=== PATIENT | female | born 1975 | race Caucasian/White ===

== ENCOUNTER 2017-08-24 10:28 | Emergency (ER) | payer SELFPAY ==
[~2017-08-24] VITALS: Ht 152.4 cm; Wt 109.8 kg
[~2017-08-24 10:28] MED LIST: OMEP40CA PO
[2017-08-24 10:35] VITALS: O2SAT 98
[2017-08-24 10:36] VITALS: TEMP 36.4; Ht 152.4 cm; Wt 109.8 kg
--- NOTE | 2017-08-24 11:18 | DIAGNOSTIC IMAGING REPORT ---
CHEST ONE VIEW PORTABLE CLINICAL HISTORY: Atypical chest pain COMPARISON STUDY: 08/04/2015 FINDINGS: The cardiac and mediastinal contours are normal. There is no evidence of focal pulmonary consolidation. There is no evidence of failure. No pleural effusions are visualized.[ IMPRESSION: No active disease in the chest. Electronically signed by: João Beyer M.D. 08/24/2017 11:16 AM Dictated Date/Time: 08/24/2017 11:16 AM
[2017-08-24 11:27] LABS: HEMATOCRIT 38.8 % (37-47); MEAN CELL VOLUME 87.2 fL (80-100); MEAN CORPUSCULAR HEMOGLOBIN 29.9 pg (25-34); MEAN CORPUSCULAR HGB CONC 34.3 g/dl (32-36); MEAN PLATELET VOLUME 11.6 fL (7.4-10.4); PLATELET COUNT 271 K/uL (130-400); RED BLOOD COUNT 4.45 M/uL (4.2-5.4)
[2017-08-24] MEDS ORDERED: KETOROLAC TROMETHAMINE 60 MG/2 ML VIAL IM STA (11:30)
[2017-08-24] MEDS ORDERED: ONDANSETRON INJ 2 MG/ML 2 ML VIAL IV STA (11:30)
[2017-08-24 11:37] LABS: INR 0.9 (0.9-1.1)
[2017-08-24 11:46] LABS: BUN/CREATININE RATIO 19.8 (10-20); CALCIUM 8.8 mg/dl (8.5-10.1); CREATININE 0.59 mg/dl (0.60-1.20); POTASSIUM 4.4 mmol/L (3.5-5.1)
[2017-08-24 11:51] LABS: CKMB/CK RATIO 2.1 (0-3.0)
[2017-08-24 13:28] VITALS: O2SAT 98
--- NOTE | 2017-08-24 13:48 | EMERGENCY ROOM VISIT NOTE ---
History First contact with patient: 11:00 Chief Complaint: CHEST PAIN Stated Complaint: CHEST PAIN Nursing Triage Summary: Pt arrives via ALS litter for eval of left sided chest pain into left jaw/shoulder/arm. Pt denies sob, dizziness or lightheadedness. Pt reports she was nauseated. Pain began at 0915 while at work at [employer]. Pt denies injury to chest. Denies leg pain. Denies cardiac hx or hx of blood clots. Pt given ntg x 3 without relief, also given 324mg ASA AUDIOVISUAL TECH. History of Present Illness Patient is a 42-year-old white female who presents to the emergency department by ALS ambulance from work for evaluation of chest pain. Patient reports that she has been feeling well and was in her usual state of health this morning. 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 She states around 0915, she had the sudden onset of left-sided chest pain, with numbness that radiated into her left arm and her face. She rated her pain a 10/10. She was given a baby aspirin at work, and they checked her blood pressure which was reportedly in the 200s over 100s. The ambulance was summoned. She received aspirin en route and nitroglycerin 3, without relief of her pain. She reports some associated nausea, denies headache, lightheadedness or dizziness or vomiting. She denies any shortness of breath. She does note that the pain radiates through to her left back slightly. It is worse when she touches the area. She denies any abdominal pain. She has not been ill recently with any cold or respiratory symptoms and no cough. She reports an episode of chest pain similar to this in the past. She has never been evaluated by a women's health care nurse practitioner. She reports she is otherwise healthy without chronic medical problems. She specifically denies hypertension, high cholesterol or diabetes. She denies any calf or leg pain or swelling. She does not smoke him is not on any oral contraceptives, there is no prolonged travel or immobilization. No personal or family history of DVT or PE. Review of Systems Review of systems as per HPI. All other systems reviewed were negative. 10 systems reviewed. Past Medical/Surgical History Medical Problems: (1) Abdominal pain (2) Back strain (3) Back strain (4) Bacterial vaginosis (5) Chest pain (6) Fall (7) Kidney stones (8) Ovarian cyst (9) Sciatica of left side (10) Spasm of back muscles (11) Stomach problems (12) Ulcer (13) Urinary tract infection (14) UTI (urinary tract infection) Surgical Problems: (1) Hx of appendectomy (2) Hx of cholecystectomy (3) Hx of tonsillectomy (4) Hx of tubal ligation Electronic medical records are reviewed and summarized as above/below. See Problem List. Family History Cancer Diabetes mellitus Heart disease Hypertension Social History Smoking Status: Never Smoker Alcohol Use: none Drug Use: none Marital Status: Housing Status: lives with family Occupation Status: employed Current/Historical Medications No Active Prescriptions or Reported Meds Physical Exam Vital Signs Date Time Temp Pulse Resp B/P (MAP) Pulse Ox O2 Delivery O2 Flow Rate FiO2 08/24/17 14:20 77 18 111/65 08/24/17 13:31 60 08/24/17 13:28 66 18 98 08/24/17 12:58 69 17 96 08/24/17 12:42 62 18 98/62 98 Room Air 08/24/17 12:41 98/62 08/24/17 12:28 59 18 99 08/24/17 11:58 57 16 96 08/24/17 11:37 58 18 115/71 98 Room Air 08/24/17 11:36 115/71 08/24/17 10:58 65 13 96 08/24/17 10:36 36.4 74 18 136/71 99 Room Air 08/24/17 10:35 98 Room Air 08/24/17 10:34 63 08/24/17 10:33 136/71 Physical Exam CONSTITUTIONAL: Patient is an obese 42-year-old white female who is awake and alert and in no acute distress. EYES: Pupils equal, round, reactive to light and accommodation. EOMs intact without nystagmus. Sclera are anicteric. ENT: Tympanic membranes intact, with normal landmarks. External canals are clear. Oral and nasopharynx are clear. Mucous membranes are moist, no lesions , tongue and gums appear normal. NECK: No bruits auscultated. Supple without lymphadenopathy. No thyromegaly. No meningeal signs. Full active range of motion without discomfort. CARDIOVASCULAR: Regular rate and rhythm, with normal S1 and S2, no murmur or gallop or rub is heard. No carotid bruits auscultated. No JVD. Peripheral pulses easy to palpable. The left costochondral border is exquisitely tender to palpation. RESPIRATORY: Breath sounds equal and clear to auscultation without wheezes, rales, or rhonchi heard. Full and equal chest expansion without accessory muscle use or retractions. GI: Bowel sounds are present. Abdomen is soft, nontender, nondistended. No organomegaly. No pulsatile masses. No guarding or rebound. MUSCULOSKELETAL: Full range of motion of extremities x 4 with good strength. No cyanosis, edema, joint tenderness or swelling. No deformity. INTEGUMENTARY: No lesions or rash, normal skin turgor. NEUROLOGICAL: Alert, oriented, and cooperative. Cranial nerves, sensation and strength grossly intact. Pupils round, equal, and react to light, EOMs are full. LYMPH: No lymphadenopathy. Medical Decision & Procedures ER Provider Diagnostic Interpretation: CHEST ONE VIEW PORTABLE CLINICAL HISTORY: Atypical chest pain COMPARISON STUDY: 08/04/2015 FINDINGS: The cardiac and mediastinal contours are normal. There is no evidence of focal pulmonary consolidation. There is no evidence of failure. No pleural effusions are visualized. IMPRESSION: No active disease in the chest. Laboratory Results 08/24/17 11:05 08/24/17 11:05 Test 08/24/17 11:05 08/24/17 11:35 08/24/17 12:42 Red Blood Count 4.45 M/uL (4.2-5.4) Mean Corpuscular Volume 87.2 fL (80-100) Mean Corpuscular Hemoglobin 29.9 pg (25-34) Mean Corpuscular Hemoglobin Concent 34.3 g/dl (32-36) RDW Standard Deviation 42.6 fL (36.4-46.3) RDW Coefficient of Variation 13.3 % (11.5-14.5) Mean Platelet Volume 11.6 fL (7.4-10.4) Prothrombin Time 10.0 SECONDS (9.0-12.0) Prothromb Time International Ratio 0.9 (0.9-1.1) Activated Partial Thromboplast Time 26.2 SECONDS (21.0-31.0) Partial Thromboplastin Ratio 1.0 Anion Gap 7.0 mmol/L (3-11) Est Creatinine Clear Calc Drug Dose 141.1 ml/min Estimated GFR () 131.9 Estimated GFR (Non- 113.8 BUN/Creatinine Ratio 19.8 (10-20) Calcium Level 8.8 mg/dl (8.5-10.1) Total Bilirubin 0.5 mg/dl (0.2-1) Aspartate Amino Transf (AST/SGOT) 15 U/L (15-37) Alanine Aminotransferase (ALT/SGPT) 24 U/L (12-78) Alkaline Phosphatase 90 U/L (45-117) Total Creatine Kinase 39 U/L (26-192) Creatine Kinase MB 0.8 ng/ml (0.5-3.6) Creatine Kinase MB Ratio 2.1 (0-3.0) Total Protein 6.6 gm/dl (6.4-8.2) Albumin 3.3 gm/dl (3.4-5.0) Globulin 3.3 gm/dl (2.5-4.0) Albumin/Globulin Ratio 1.0 (0.9-2) Urine Test NEG (NEG) Bedside Troponin I < 0.030 ng/ml (0-0.045) Medications Administered Medications (Trade) Dose Ordered Sig/Ozzie Route Start Time Stop Time Status Last Admin Dose Admin Ondansetron HCl (Zofran Inj) 4 mg NOW STAT IV 08/24/17 11:30 08/24/17 11:32 DC 08/24/17 11:36 4 MG Ketorolac Tromethamine (Toradol Inj) 60 mg NOW STAT IM 08/24/17 11:30 08/24/17 11:32 DC 08/24/17 11:36 60 MG ECG Indication: chest pain Rate (beats per minute): 65 Rhythm: sinus with SA Findings: no acute ischemic change, no ectopy Change: no significant change ED Course The patient was seen and evaluated as above. Her old records were reviewed. Critical pathways had been implemented prior to my evaluation of the patient. IV lock was initiated, laboratory studies were collected and EKG and chest x- ray had been obtained. After the patient was assessed by myself, she was given Toradol 60 mg IM and Zofran 4 mg IV. CBC was unremarkable, coags and electrolytes are within normal limits. Cardiac enzymes are not elevated and troponin is negative 2. Urine dip noted blood, contamination from her menses. test was negative. The patient was reassessed recently admitted aware of the results of her ED workup. She has reproducible left chest wall discomfort to palpation. I suspect that this is the source of her symptoms today. She does not have any significant cardiac risk factors. I do not suspect ACS, acute LA, PE, pericarditis, myocarditis, pneumothorax, pneumonia. The patient was encouraged to use an anti-inflammatory medicine, and rest and avoid any strenuous activity. She was educated on the worrisome signs or symptoms for which she should return to the emergency department. She was advised to follow-up with her primary care provider next week for follow-up from her ED visit. The patient continues to rate her pain a 10/10 at discharge. Her vital signs were stable. Medical Decision See Emergency Department course. Medication Reconcilliation Current Medication List: was personally reviewed by me Blood Pressure Screening Patient's blood pressure: Normal blood pressure Blood pressure disposition: Referred to PCP Impression Primary Impression: Chest wall pain Departure Information Prescriptions No Active Prescriptions or Reported Meds Referrals Genaro Collado M.D. (PCP) Patient Instructions [facility] Additional Instructions Ibuprofen(Motrin, Advil) may be used for fever or pain. Use 600mg every six hours as needed. Take with food. Avoid using more than 2400mg in a 24 hour period. Do not use 2400mg per day for more than three consecutive days without physician direction. Prolonged inappropriate use can lead to stomach upset or ulcers. (AND/OR) Acetaminophen(Tylenol) may be used for fever or pain. Use 1000mg every six hours as needed. Avoid using more than 3000mg in a 24 hour period. Rest and drink plenty of fluids as tolerated. Continue current medications. Avoid strenuous activities and anything that worsens your pain. Resume normal activities once your symptoms resolve. Return to the ER immediately for worsening or persistent chest pain, abdominal pain, vomiting, fevers, chest pains, difficulty breathing, worsening of your condition, or as needed. Follow up with your primary physician in 2-3 days for a recheck of your current condition.
[2017-08-24 14:20] VITALS: BP 111/65; PULSE 77
== END 2017-08-24 14:21 | disposition home or self-care (01) ==
LOC: EDBD 10:28 → C.EDA 10:32
DX: R07.89 Other chest pain (principal); N83.209 Unspecified ovarian cyst, unspecified side; Z87.440 Personal history of urinary (tract) infections; Z87.442 Personal history of urinary calculi; Z87.828 Personal history of other (healed) physical injury and trauma; Z91.81 History of falling; Z90.49 Acquired absence of other specified parts of digestive tract; Z98.51 Tubal ligation status; Z98.890 Other specified postprocedural states; Z80.9 Family history of malignant neoplasm, unspecified; Z83.3 Family history of diabetes mellitus; Z82.49 Family history of ischemic heart disease and other diseases of the circulatory system

== ENCOUNTER 2021-06-10 00:40 | Inpatient (IN) ==
--- NOTE | 2021-06-10 01:01 | Emergency Department Note ---
Impression & Plan Infection of right foot, Failure of outpatient treatment, Leukocytosis ED Provider Note Name: MARILIN CASTELLANOS Age: 46 Sex: F Arrives Via: Walk-In Informant: Patient ED Provider: Larry Sorensen MD Chief Complaint: foot pain Impression: Infection of right foot Failure of outpatient treatment Leukocytosis Medical Decision Makin yr old female with history HLP arrives with right foot pain for the past few weeks. Initially seen at OSH diagnosed with foot fracture and ended up in boot with Ortho, though due to erythema had been on doxy up until 3 days ago. Did have outpatient MRI showing edema 4th MTP joint and labs with WBC 26 as outpatient. Tonight worsening pain and swelling. Exam with redness and swelling over top of foot without compartment syndrome nor crepitus. US without DVT. Labs with elevated WBC. This is consistent with significant infection for foot that has failed outpatient treatment. Furthermore, she is requiring multiple rounds IV narcotics. Hospitalist consulted for further management. Prior Medical Record and Triage/Nursing Notes reviewed by Me Additional history obtained from Epic records Differentials:DVT, musculoskeletal, infection, joint effusion, trauma, lymphedema, idiopathic, CHF, as well as other pathologies. Vital Signs: reviewed and remarkable for no significant abnormalities Interventions: saline lock, nss bolus 2L IV, zosyn 4.5 gm iv, vanco 1.5gm iv, dilaudid 1mg iv x 2 Labs:Reviewed and remarkable for elevated wbc Imaging:[facility] Radiologist interpretation reviewed by me: us right leg no acute dvt Consults:Dr Vickie Hodges Hospitalist Plan: Disposition: Hospitalization Condition: Good History of Present Illness:46 yr female arrives for evaluation of right foot pain. She noted pain about 1 month ago and diagnosed with possible right foot fracture. She noted worsening pain and erythema and thus PCP placed on doxy. Seen by Ortho who placed in boot and obtained MRI of foot. MRI revealed edema around 4th MTP joint. She notes that she started having return of pain and swelling when finished doxy 3 days ago. Severe to point where unable to tolerate tonight. Gabapentin not working for pain control. No fevers but feels tired/weak. No nausea, vomiting, syncope, headache, neck stiffness, sob, chest pain, other rashes, urinary/bowel changes, nor other symptoms. No history of infectious issues previously. No known trauma. Movement makes worse, rest makes better. ROS: See above HPI for pertinent positives & negatives. A total of 10 systems reviewed and were otherwise negative. Past Medical History:See Below Past Surgical History:See Below Family History:See Below Social History:See Below Home Medications:See Below Allergies:See Below Vitals:Blood Pressure: 131/74, Pulse 71, RR 18, T 36.3C, O2 96% on RA Physical Exam: GENERAL: Patient is uncomfortable appearing and in moderate distress. EYES: No scleral icterus, unremarkable pupils. ENT: Mucous membranes moist, no nasal congestion. NECK: No masses appreciated, nomeningismus, trachea is midline. RESPIRATORY: No dyspnea. Clear to auscultation and equal bilaterally. No wheeze, no rhonchi. CARDIOVASCULAR: Regular rate and rhythm.No murmurs, rubs, gallops appreciated. GASTROINTESTINAL: Abdomen soft, non-tender, no peritonitis.Bowel sounds positive.No masses appreciated. BACK: No midline tenderness, no CVA tenderness EXTREMITIES: Swelling and edema right foot primarily over dorsal aspect with erythema over top of foot from base of toes to ankle. TTP over most of foot without crepitus, fluctuant, nor compartment syndrome. Normal motion all extremities, no cyanosis, no edema. NEUROLOGIC: Alert and oriented, no acute motor or sensory deficits, no focal weakness, cranial nerves grossly intact. SKIN: No rash, no jaundice, no diaphoresis. PSYCH: Appropriate GCS: 15 ED Course: Times/Reassessments: gradual improvement in pain Larry Sorensen MD Past Med/Surg History Medical History (Updated 06/10/21 @ 08:11 by Larry Sorensen MD) Dyslipidemia Surgical History History of appendectomy History of cholecystectomy Social History Smoking Status: Never smoker Preferred Language: [place] marital status: Current Living Situation: Spouse and Family Feels Safe at Home: Yes Allergies Allergies Allergy/AdvReac Type Severity Reaction Status Date / Time No Known Allergies Allergy Unknown Verified 06/10/21 01:20 Home Meds Home Medications Medication Instructions Recorded Confirmed pregabalin 75 mg capsule 75 mg PO BID 06/10/21 06/10/21 sulfamethoxazole 800 1 tab PO BID 06/10/21 06/10/21 mg-trimethoprim 160 mg tablet Results & Data (ED) Vital Signs Vital Signs - 24 hr 06/10/21 00:45 06/10/21 04:14 06/10/21 07:04 Temperature 36.3 C L Temperature Source Temporal Artery Scan Pulse Rate 99 H Pulse Rate [Right Finger] 68 67 Pulse Rhythm [Right Finger] Regular Pulse Strength [Right Finger] Normal Respiratory Rate 18 16 18 Respiratory Effort / Characteristics Non-Labored Spontaneous Non-Labored Spontaneous Respiratory Depth Normal Normal Normal Respiratory Pattern Regular Regular Blood Pressure 132/72 Blood Pressure [Left Arm] 107/65 108/60 Blood Pressure Mean 92 Blood Pressure Mean [Left Arm] 79 76 Pulse Oximetry 97 96 98 Oxygen Delivery Method Room Air Room Air Room Air Sepsis Recent Fever Within 48 Hours No Sepsis New/Unexplained Change in Mental Status N/A Sepsis Action Taken by Nursing No Action Required 06/10/21 07:56 Temperature Temperature Source Pulse Rate 71 Pulse Rate [Right Finger] Pulse Rhythm [Right Finger] Pulse Strength [Right Finger] Respiratory Rate 18 Respiratory Effort / Characteristics Respiratory Depth Respiratory Pattern Blood Pressure 131/74 Blood Pressure [Left Arm] Blood Pressure Mean Blood Pressure Mean [Left Arm] Pulse Oximetry 96 Oxygen Delivery Method Room Air Sepsis Recent Fever Within 48 Hours Sepsis New/Unexplained Change in Mental Status Sepsis Action Taken by Nursing Laboratory Data Result diagrams: 06/10/21 01:05 06/10/21 01:05 Lab Results 06/10/21 06/10/21 06/10/21 Range/Units 01:05 01:05 01:05 WBC 19.82 H (4.8-10.8) K/uL RBC 4.41 (4.2-5.4) M/uL Hgb 12.7 (12.0-16.0) g/dL Hct 38.9 (37-47) % MCV 88.2 (80-100) fL MCH 28.8 (25-34) pg MCHC 32.6 (32-36) g/dL RDW Std Deviation 47.0 H (36.4-46.3) fL RDW Coeff of Nathalia 14.6 H (11.5-14.5) % Plt Count 321 (130-400) K/uL MPV 11.2 H (7.4-10.4) fL Immature Gran % (Auto) 0.9 % Neut % (Auto) 79.2 % Lymph % (Auto) 13.4 % Lanier % (Auto) 5.3 % Eos % (Auto) 1.0 % Baso % (Auto) 0.2 % Neut # (Auto) 15.71 H (1.4-6.5) K/uL Lymph # (Auto) 2.66 (1.2-3.4) K/uL Lanier # (Auto) 1.05 H (0.11-0.59) K/uL Eos # (Auto) 0.20 (0-0.5) K/uL Baso # (Auto) 0.03 (0-0.2) K/uL Immature Gran # (Auto) 0.17 H (0.00-0.02) K/uL ESR 46 H (0-20) mm/hr Sodium 136 (136-145) mmol/L Potassium 3.6 (3.5-5.1) mmol/L Chloride 106 (98-107) mmol/L Carbon Dioxide 29 (21-32) mmol/L Anion Gap 1.0 L (3-11) BUN 20 H (7-18) mg/dl Creatinine 0.72 (0.6-1.2) mg/dl Est Cr Clr Drug Dosing Not Reportable Est GFR ( Amer) 117.2 ml/min Est GFR (Non-Af Amer) 101.1 ml/min BUN/Creatinine Ratio 27.8 H (10-20) Glucose 126 H (70-99) mg/dl Lactate (0.4-2.0) mmol/L Calcium 8.8 (8.5-10.1) mg/dl Magnesium 1.8 (1.8-2.4) mg/dl Total Creatine Kinase (26-192) U/L C-Reactive Protein 5.31 H (0-0.29) mg/dl Procalcitonin (0-0.5) ng/ml COVID-19 Eval Order SARS-CoV-2 (PCR) (Negative) 06/10/21 06/10/21 06/10/21 Range/Units 01:05 01:05 01:41 WBC (4.8-10.8) K/uL RBC (4.2-5.4) M/uL Hgb (12.0-16.0) g/dL Hct (37-47) % MCV (80-100) fL MCH (25-34) pg MCHC (32-36) g/dL RDW Std Deviation (36.4-46.3) fL RDW Coeff of Nathalia (11.5-14.5) % Plt Count (130-400) K/uL MPV (7.4-10.4) fL Immature Gran % (Auto) % Neut % (Auto) % Lymph % (Auto) % Lanier % (Auto) % Eos % (Auto) % Baso % (Auto) % Neut # (Auto) (1.4-6.5) K/uL Lymph # (Auto) (1.2-3.4) K/uL Lanier # (Auto) (0.11-0.59) K/uL Eos # (Auto) (0-0.5) K/uL Baso # (Auto) (0-0.2) K/uL Immature Gran # (Auto) (0.00-0.02) K/uL ESR (0-20) mm/hr Sodium (136-145) mmol/L Potassium (3.5-5.1) mmol/L Chloride (98-107) mmol/L Carbon Dioxide (21-32) mmol/L Anion Gap (3-11) BUN (7-18) mg/dl Creatinine (0.6-1.2) mg/dl Est Cr Clr Drug Dosing Est GFR ( Amer) ml/min Est GFR (Non-Af Amer) ml/min BUN/Creatinine Ratio (10-20) Glucose (70-99) mg/dl Lactate 1.6 (0.4-2.0) mmol/L Calcium (8.5-10.1) mg/dl Magnesium (1.8-2.4) mg/dl Total Creatine Kinase 21 L (26-192) U/L C-Reactive Protein (0-0.29) mg/dl Procalcitonin < 0.05 (0-0.5) ng/ml COVID-19 Eval Order SARS-CoV-2 (PCR) (Negative) 06/10/21 06/10/21 Range/Units 05:03 05:03 WBC (4.8-10.8) K/uL RBC (4.2-5.4) M/uL Hgb (12.0-16.0) g/dL Hct (37-47) % MCV (80-100) fL MCH (25-34) pg MCHC (32-36) g/dL RDW Std Deviation (36.4-46.3) fL RDW Coeff of Nathalia (11.5-14.5) % Plt Count (130-400) K/uL MPV (7.4-10.4) fL Immature Gran % (Auto) % Neut % (Auto) % Lymph % (Auto) % Lanier % (Auto) % Eos % (Auto) % Baso % (Auto) % Neut # (Auto) (1.4-6.5) K/uL Lymph # (Auto) (1.2-3.4) K/uL Lanier # (Auto) (0.11-0.59) K/uL Eos # (Auto) (0-0.5) K/uL Baso # (Auto) (0-0.2) K/uL Immature Gran # (Auto) (0.00-0.02) K/uL ESR (0-20) mm/hr Sodium (136-145) mmol/L Potassium (3.5-5.1) mmol/L Chloride (98-107) mmol/L Carbon Dioxide (21-32) mmol/L Anion Gap (3-11) BUN (7-18) mg/dl Creatinine (0.6-1.2) mg/dl Est Cr Clr Drug Dosing Est GFR ( Amer) ml/min Est GFR (Non-Af Amer) ml/min BUN/Creatinine Ratio (10-20) Glucose (70-99) mg/dl Lactate (0.4-2.0) mmol/L Calcium (8.5-10.1) mg/dl Magnesium (1.8-2.4) mg/dl Total Creatine Kinase (26-192) U/L C-Reactive Protein (0-0.29) mg/dl Procalcitonin (0-0.5) ng/ml COVID-19 Eval Order Covid19 at [facility] SARS-CoV-2 (PCR) NEGATIVE (Negative) Administered Medications Discontinued Medications Hydromorphone HCl (Hydromorphone Inj 1 Mg/Ml Syringe) 1 mg IV NOW STA Stop: 06/10/21 02:43 Last Admin: 06/10/21 02:46 Dose: 1 mg Documented by: [id number] Hydromorphone HCl (Hydromorphone Inj 1 Mg/Ml Syringe) 1 mg IV NOW STA Stop: 06/10/21 03:33 Last Admin: 06/10/21 04:11 Dose: 1 mg Documented by: [id number] Piperacillin Sod/Tazobactam Sod (Zosyn) 4.5 gm in 120 mls @ 240 mls/hr IV NOW ONE Stop: 06/10/21 03:00 Last Infusion: 06/10/21 05:29 Dose: 0 mls/hr Documented by: [id number] Admin: 06/10/21 03:20 Dose: 240 mls/hr Documented by: [id number] Vancomycin HCl 1,500 mg/ (Sodium Chloride) 530 mls @ 200 mls/hr IV NOW ONE Stop: 06/10/21 05:00 Last Infusion: 06/10/21 07:01 Dose: 0 mls/hr Documented by: [id number] Admin: 06/10/21 03:56 Dose: 200 mls/hr Documented by: [id number] Sodium Chloride (Nss 1000ml) 1,000 mls @ 999 mls/hr IV .Q1H1M ONE Stop: 06/10/21 03:32 Last Infusion: 06/10/21 05:28 Dose: 0 mls/hr Documented by: [id number] Admin: 06/10/21 03:56 Dose: 999 mls/hr Documented by: [id number] Sodium Chloride (Nss 1000ml) 500 mls @ 999 mls/hr IV .Q31M ONE Stop: 06/10/21 03:02 Last Infusion: 06/10/21 05:31 Dose: 0 mls/hr Documented by: [id number] Admin: 06/10/21 05:00 Dose: 999 mls/hr Documented by: [id number] Ioversol (Optiray 320 100ml) 94 ml IV ONCE ONE Stop: 06/10/21 06:38 Last Admin: 06/10/21 06:38 Dose: 94 ml Documented by: [id number] Imaging Data Radiologist's Impression: Venous Doppler Study 06/10/21 00:59 US venous doppler LE RT HISTORY: 46 years-old Female right foot and calf pain/swelling acute pain and swelling of the right lower extremity COMPARISON: None TECHNIQUE: Multiple real-time sonographic images of the right lower extremity venous structures were obtained assessing grayscale appearance, color and spectral flow FINDINGS: Normal flow, compressibility, phasicity and augmentation. IMPRESSION: No sonographic evidence of deep venous thrombosis. ACT 112: Negative or not required by law. The above report was generated using voice recognition software. It may contain grammatical, syntax or spelling errors. Electronically signed by: Marvin Roe M.D. 06/10/2021 6:34 AM Discharge Plan Visit Data Chief Complaint: Leg Injury/Pain Stated Complaint: RT LEG PAIN,SWELLING,WEAKNESS ED Provider: Larry Sorensen Discharge Problem: Infection of right foot, Failure of outpatient treatment, Leukocytosis Discharge Instructions Interventions: ED Discharge Assessment Last Done: 06/10/21 07:56 Forms Stand Alone Forms: [employer] Prescriptions Prescriptions: No Action sulfamethoxazole-trimethoprim 800-160 mg tablet 1 tab PO BID RF: 0 pregabalin 75 mg capsule 75 mg PO BID RF: 0 Referrals Referrals: Genaro Collado MD [Primary Care Provider] - Discharge Problem: Leukocytosis Qualifiers: Leukocytosis type: unspecified Qualified Code(s): D72.829 - Elevated white blood cell count, unspecified
[2021-06-10 01:26] LABS: Basophils # (auto) 0.03 K/uL (0-0.2); Basophils % (auto) 0.2 %; Hematocrit (blood only) 38.9 % (37-47); Hemoglobin 12.7 g/dL (12.0-16.0); Immature Granulocytes # (auto) 0.17 K/uL (0.00-0.02); Immature Granulocytes % (auto) 0.9 %; Lymphocytes # (auto) 2.66 K/uL (1.2-3.4); Lymphocytes % (auto) 13.4 %; Mean Corpuscular Hemoglobin 28.8 pg (25-34); Mean Corpuscular Hgb Conc 32.6 g/dL (32-36); Mean Corpuscular Volume 88.2 fL (80-100); Mean Platelet Volume 11.2 fL (7.4-10.4); Monocytes # (auto) 1.05 K/uL (0.11-0.59); Monocytes % (auto) 5.3 %; Neutrophils # (auto) 15.71 K/uL (1.4-6.5); Neutrophils % (auto) 79.2 %; Platelet Count 321 K/uL (130-400); RDW Coefficient of Variation 14.6 % (11.5-14.5); Red Blood Count 4.41 M/uL (4.2-5.4); White Blood Count 19.82 K/uL (4.8-10.8)
[2021-06-10 01:43] LABS: BUN Creatinine Ratio 27.8 (10-20); Blood Urea Nitrogen 20 mg/dl (7-18); Calcium 8.8 mg/dl (8.5-10.1); Carbon Dioxide 29 mmol/L (21-32); Chloride 106 mmol/L (98-107); Est GFR (African American) 117.2 ml/min; Est GFR (Non-African American) 101.1 ml/min; Glucose 126 mg/dl (70-99); Potassium 3.6 mmol/L (3.5-5.1); Sodium 136 mmol/L (136-145)
[2021-06-10 01:45] LABS: C Reactive Protein 5.31 mg/dl (0-0.29)
[2021-06-10] MEDS ORDERED: VANCOMYCIN CONSULT ACTIVE PRN (02:31)
[2021-06-10] MEDS ORDERED: VANCOMYCIN HCL 1,500 MG in SODIUM CHLORIDE 0.9% 500 ML IV ONE (02:31)
[2021-06-10] MEDS ORDERED: PIPERACILL/TAZOBAC CONSULT ACTIVE PRN (02:31)
[2021-06-10] MEDS ORDERED: PIPERACILLIN/TAZOBACTAM 4.5 GM/120 ML BAG IV ONE (02:31)
[2021-06-10] MEDS ORDERED: SODIUM CHLORIDE 0.9% 1000ML 1,000 ML IV ONE (02:32)
[2021-06-10] MEDS ORDERED: SODIUM CHLORIDE 0.9% 1000ML 500 ML IV ONE (02:32)
[2021-06-10] MEDS ORDERED: HYDROmorphone INJ 1 MG/ML SYRINGE IV STA ×2 (02:42→03:32)
[2021-06-10] MEDS ORDERED: HYDROmorphone INJ 1 MG/ML SYRINGE IV PRN (03:32)
[2021-06-10 04:34] LABS: Magnesium 1.8 mg/dl (1.8-2.4)
--- NOTE | 2021-06-10 05:42 | History & Physical Report ---
Date of Service June 10, 2021 Assessment & Plan (1) Infection of right foot: Plan: Failed outpatient treatment Possible sepsis Rule out abscess Steroid-induced hyperglycemia rule out DM GMF CS, Daptomycin, Cefepime CT right foot with contrast May need Orthopedics evaluation pending CT right foot results N.p.o. until CT right foot results available. Check hemoglobin A1c DVT prophylaxis. Lovenox subcu Full code Text document was generated using [employer] voice recognition software. It may contain grammatical or spelling errors. Kindly contact undersigned for clarification of any documentation item in question. History of Present Illness Chief Complaint: Worsening right foot swelling Primary Care Provider: Genaro Collado MD History obtained from patient and records. Medical history significant for hyperlipidemia, IBS as per records. Patient noted swelling on right foot dorsum after a pedicure last month. No fever, chills, chest pain, S OB. Patient seen at [facility]. X-rays were negative. No response to prednisone course initiated by PCP for possible acute gout. Doxycycline prescribed by PCP 2 weeks ago for possible right foot cellulitis. Outpatient right foot MRI last week showed small for MTP joint effusion with edema in the surrounding soft tissue and adjacent bone marrow. Marrow edema is mild and likely reactive. Degeneration versus partial tearing of the medial band of the 4th plantar plate. Mild inter metatarsal bursitis in the 1st, 2nd, and 3rd interspaces. 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 Bactrim prescribed for worsening swelling with some extension to the right lower leg, outpatient leukocytosis in the 20s, and abnormal MRI. Patient consulted ER for worsening symptoms. Patient received IV vancomycin and Zosyn for worsening right foot infection. 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 Allergies Allergy/AdvReac Type Severity Reaction Status Date / Time No Known Allergies Allergy Unknown Verified 06/10/21 01:20 Home Medications Medication Instructions Recorded Confirmed Type pregabalin 75 mg capsule 75 mg PO BID 06/10/21 06/10/21 History sulfamethoxazole 800 1 tab PO BID 06/10/21 06/10/21 History mg-trimethoprim 160 mg tablet Past Med/Surg History Medical History (Updated 06/10/21 @ 08:11 by Larry Sorensen MD) Dyslipidemia Surgical History History of appendectomy History of cholecystectomy Social History Smoking Status: Never smoker Second Hand Exposure: No; Do You Dip or Chew Tobacco: No; Hx Alcohol Use: Yes Alcohol type: wine Hx Substance Use: No Preferred Language: Kuwaiti Communication Ability: Effective Stockbroker Required: No Beliefs That Will Affect Care: None marital status: Current Living Situation: Family Feels Safe at Home: Yes Safety Concerns: Feels Safe At This Time Assistive Devices: Glasses Review of Systems Review of Systems: As per HPI, all 10 systems reviewed, all other ROS negative Physical Exam Physical Exam: GENERAL: Comfortable, pleasant, morbidly obese, no respiratory distress SKIN: Normal color, warm HEENT: Damon palpebral conjunctivae, no ptosis, dry buccal mucosa NECK : Supple, short neck, no tenderness CHEST : CTA, no tenderness HEART : RRR, no obvious murmurs ABDOMEN: Some distention, nontender EXTREMITIES : Tender swelling right foot dorsum with minimal extension to right lower extremity, no other conspicuous deformities noted NEUROLOGIC : Coherent, no facial asymmetry, no other gross focality Results & Data Results & Data ([facility]) Vital Signs (Past 12 Hours) Vital Signs Temp Pulse Pulse Resp BP BP Pulse Ox 06/10/21 04:14 68 16 107/65 96 06/10/21 00:45 36.3 C L 99 H 18 132/72 97 Laboratory Results Ultrasound venous RLE initial read: No DVT Diagnostic Findings Laboratory Results WBC 19.82 K/uL (4.8-10.8) H 06/10/21 01:05 RBC 4.41 M/uL (4.2-5.4) 06/10/21 01:05 Hgb 12.7 g/dL (12.0-16.0) 06/10/21 01:05 Hct 38.9 % (37-47) 06/10/21 01:05 MCV 88.2 fL (80-100) 06/10/21 01:05 MCH 28.8 pg (25-34) 06/10/21 01:05 MCHC 32.6 g/dL (32-36) 06/10/21 01:05 RDW Std Deviation 47.0 fL (36.4-46.3) H 06/10/21 01:05 RDW Coeff of Nathalia 14.6 % (11.5-14.5) H 06/10/21 01:05 Plt Count 321 K/uL (130-400) 06/10/21 01:05 MPV 11.2 fL (7.4-10.4) H 06/10/21 01:05 Immature Gran % (Auto) 0.9 % 06/10/21 01:05 Neut % (Auto) 79.2 % 06/10/21 01:05 Lymph % (Auto) 13.4 % 06/10/21 01:05 [place] % (Auto) 5.3 % 06/10/21 01:05 Eos % (Auto) 1.0 % 06/10/21 01:05 Baso % (Auto) 0.2 % 06/10/21 01:05 Neut # (Auto) 15.71 K/uL (1.4-6.5) H 06/10/21 01:05 Lymph # (Auto) 2.66 K/uL (1.2-3.4) 06/10/21 01:05 [place] # (Auto) 1.05 K/uL (0.11-0.59) H 06/10/21 01:05 Eos # (Auto) 0.20 K/uL (0-0.5) 06/10/21 01:05 Baso # (Auto) 0.03 K/uL (0-0.2) 06/10/21 01:05 Immature Gran # (Auto) 0.17 K/uL (0.00-0.02) H 06/10/21 01:05 ESR 46 mm/hr (0-20) H 06/10/21 01:05 Sodium 136 mmol/L (136-145) 06/10/21 01:05 Potassium 3.6 mmol/L (3.5-5.1) 06/10/21 01:05 Chloride 106 mmol/L (98-107) 06/10/21 01:05 Carbon Dioxide 29 mmol/L (21-32) 06/10/21 01:05 Anion Gap 1.0 (3-11) L 06/10/21 01:05 BUN 20 mg/dl (7-18) H 06/10/21 01:05 Creatinine 0.72 mg/dl (0.6-1.2) 06/10/21 01:05 Est Cr Clr Drug Dosing Not Reportable 06/10/21 01:05 Est GFR ( Amer) 117.2 ml/min 06/10/21 01:05 Est GFR (Non-Af Amer) 101.1 ml/min 06/10/21 01:05 BUN/Creatinine Ratio 27.8 (10-20) H 06/10/21 01:05 Glucose 126 mg/dl (70-99) H 06/10/21 01:05 Lactate 1.6 mmol/L (0.4-2.0) 06/10/21 01:41 Calcium 8.8 mg/dl (8.5-10.1) 06/10/21 01:05 Magnesium 1.8 mg/dl (1.8-2.4) 06/10/21 01:05 C-Reactive Protein 5.31 mg/dl (0-0.29) H 06/10/21 01:05 Procalcitonin < 0.05 ng/ml (0-0.5) 06/10/21 01:05 COVID-19 Eval Order Covid19 at [facility] 06/10/21 05:03
--- NOTE | 2021-06-10 06:35 | Ultrasound Report ---
US venous doppler LE RT HISTORY: 46 years-old Female right foot and calf pain/swelling acute pain and swelling of the right lower extremity COMPARISON: None TECHNIQUE: Multiple real-time sonographic images of the right lower extremity venous structures were obtained assessing grayscale appearance, color and spectral flow FINDINGS: Normal flow, compressibility, phasicity and augmentation. IMPRESSION: No sonographic evidence of deep venous thrombosis. ACT 112: Negative or not required by law. The above report was generated using voice recognition software. It may contain grammatical, syntax o r spelling errors. Electronically signed by: Marvin Roe M.D. 06/10/2021 6:34 AM
[2021-06-10] MEDS ORDERED: OPTIRAY 320 100ml IV ONE (06:37)
--- NOTE | 2021-06-10 08:17 | CT Scan Report ---
CT foot RT w con HISTORY: 46 years-old Female R foot swelling subacute pain with soft tissue swelling of the right fo ot. No reported trauma. COMPARISON: None TECHNIQUE: Multiple axial CT images of the right foot were obtained following the intravenous adminis tration of 94 mL Optiray 320. A dose lowering technique was used consistent with the principals of SAMEERA NOBLE. FINDINGS: Tendons and ligaments are better evaluated by MRI technique. Mild to moderate diffuse subcutaneous ed mago, most pronounced along the dorsal forefoot. Tiny peripherally enhancing fluid collections noted a long the volar forefoot including a 1.2 cm collection volar to the cuboid on image 185. There is an 8 mm fluid collection volar to the cuboid on image 202 a 10 mm fluid collection is noted on image 199 volar to the fourth tarsal metatarsal joint. No acute fracture, dislocation or osseous erosion. Type I accessory navicular. Moderate sized plantar enthesophyte of the calcaneus. No significant osteoarthritis. IMPRESSION: 1. No acute bony abnormality. 2. Subcutaneous edema of the foot and ankle suggestive of cellulitis. There are tiny peripherally enh ancing fluid collections of the volar forefoot measuring up to 1.2 cm suggestive of abscesses. ACT 112: Negative or not required by law. The above report was generated using voice recognition software. It may contain grammatical, syntax o r spelling errors. Electronically signed by: Marvin Roe M.D. 06/10/2021 8:16 AM
[2021-06-10 08:18] LABS: Estimated Average Glucose 123 mg/dl; Hemoglobin A1C 5.9 % (4.5-5.6)
[2021-06-10] MEDS ORDERED: IBUPROFEN 200 MG TAB PO PRN (08:32)
[2021-06-10] MEDS ORDERED: POTASSIUM CHLORIDE 40 MEQ in SODIUM CHLORIDE 0.9% 1000ML 1,000 ML IV SCH (09:00)
[2021-06-10] MEDS ORDERED: CEFEPIME CONSULT ACTIVE PRN (09:03)
[2021-06-10] MEDS: CEFEPIME 2,000 MG in SYRINGE 0 ML IV SCH ×2 (09:54→22:13)
[2021-06-10] MEDS: DAPTOmycin 300 MG in SYRINGE 0 ML IV SCH (09:54)
[2021-06-10] MEDS: PREGABALIN 75 MG CAP PO SCH ×2 (09:56→20:43)
[2021-06-10] MEDS: ENOXAPARIN INJ 40 MG/0.4 ML SYR SQ SCH (10:31)
[2021-06-10] MEDS: PROMETHAZINE HCL 12.5 MG in SODIUM CHLORIDE 0.9% 50 ML IV PRN ×2 (10:31→16:41)
[2021-06-10] MEDS ORDERED: ONDANSETRON INJ 2 MG/ML 2 ML VIAL IV PRN (17:22)
--- NOTE | 2021-06-10 17:29 | Hospitalist Progress Note ---
Date of Service June 10, 2021 Assessment & Plan (1) Infection of right foot: Plan: Right lower extremity cellulitis and possible abscess Failed outpatient therapy with PO antibiotic CT foot showed Subcutaneous edema of the foot and ankle suggestive of cellulitis. There are tiny peripherally enhancing fluid collections of the volar forefoot measuring up to 1.2 cm suggestive of abscesses. Doppler of RLE extremity showed no evidence of DVT Received Vanco and Zosyn in the ER Elevated WBC 19K Currently on Dapto and Cefepime IV Case discussed with Dr. Overton Podiatry about CT finding about the abscesses Dr. Overton said that the outpatient MRI finding did not mention any evidence of abscess Will consult ortho to eval for the abscess Continue monitor CBC Hyperglycemia Mostly related to steroid Hgb A1c 5.9 on 06/10 Continue monitor BS DVT prophylaxis. Lovenox subcu Full code Admission and Anticipated Discharge Date Admission Date: June 10, 2021 Subjective Pt was seen and examined for follow up of right lower extremity cell Lying in bed with no distress resting comfortable She said that that the erythema improves, but the swelling and pain worst in right Lower extremity Physical Exam Physical Exam: General- No acute distress Head- atraumatic Eyes- PERRL, EOMI, ENT- oropharynx clear Neck- supple, no JVD Lungs- clear to auscultation Heart- regular rhythm; no murmur Abdomen- normal bowel sounds, soft, nontender Extremities- no calf tenderness, right lower extremities tenderness and swelling Neuro- alert, oriented x 3; PERRL, EOMI; no facial palsy; no dysarthria Skin- warm & dry Results & Data Results & Data ([facility]) Vital Signs (Past 12 Hours) Vital Signs Temp Pulse Pulse Resp BP BP Pulse Ox 06/10/21 15:47 36.6 C 82 16 119/80 97 06/10/21 08:40 36.4 C L 57 L 16 127/89 92 06/10/21 08:39 36.4 C L 57 L 16 127/89 92 06/10/21 07:56 71 18 131/74 96 06/10/21 07:04 67 18 108/60 98
--- NOTE | 2021-06-10 19:41 | Consultation Report ---
DATE OF CONSULTATION: 06/10/2021. HISTORY OF PRESENT ILLNESS: This is a 46-year-old female seen at the request of Dr. America kan regarding right foot pain and cellulitis. Apparently, the patient has had approximately a month hi story of swelling and pain in the dorsum of her right foot. She had a pedicure last month; however, no other injuries that she can recall. 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 They did x-rays, they gave her prednisone and they were concerned about possibl e gout. Continued to have pain and swelling. Given doxycycline by her primary care physician 2 weeks ago for possible right foot cellulitis. She was then seen by Dr. Annette Overton, shot man at [facility] who then ordered an MRI of her foot, noted some small MTP joint effusions with edema in the surrou nding soft tissue and adjacent bone marrow, marrow edema mild and likely reactive, degeneration versu s partial tearing of the medial band of the fourth plantar plate, mild intermetatarsal bursitis of fi rst, second and third interspaces. She was prescribed Bactrim for worsening swelling and extension i nto the right lower leg. Seen in the Emergency Department at [facility] and admitt ed to the hospitalist service with orthopedics to consult. She had no other associated injuries that she can recall and no previous history of abscess or cellulitis that she can recall. PAST MEDICAL HISTORY: Dyslipidemia. PAST SURGICAL HISTORY: Appendectomy, cholecystectomy. ALLERGIES: No known drug allergies. MEDICATIONS AT HOME: Pregabalin, sulfamethoxazole 800 mg/trimethoprim 160 mg b.i.d. Also, a stomach medicine for reflux. SOCIAL HISTORY: She denies tobacco use. She drinks wine on occasion. Denies any drug use. 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 She is and lives at home with her family. PHYSICAL EXAMINATION: This is a 46-year-old female, lying supine in hospital room bed. She is alert and oriented x3. Speech clear and fluent. Affect is appropriate. Focused exam of the right foot d emonstrates skin erythematous at the dorsum of the foot with dorsal swelling of the forefoot adjacent to the second, third, and fourth metatarsophalangeal joints with some swelling into the toes and pro ximal to the mid foot. Erythema over the dorsum of the distal forefoot and also over the lateral hin dfoot and ankle. Tenderness to palpation over the dorsum of the mid foot and also over the posterola teral hindfoot. Dorsalis pedis and posterior tibial pulses are 2/4. Cap refill is brisk at 2 second s. Foot is warm. Normal range of motion albeit with discomfort related to the swelling and mild kristie thema. There is no significant streaking up the leg. There is no tenderness in the calf or posterio r knee at the lymph nodes. IMAGING: Reviewed radiographs and CT scan without convincing evidence of abscess or osteomyelitis. T he MRI images are unavailable from last week. We will request that they be sent over from [facility]. Should symptoms continue, would recommend a repeat MRI. Laboratories are reviewed. IMPRESSION: 1. Right foot cellulitis. 2. Metatarsalgia, second, third and fourth, right foot. 3. Right foot pain. RECOMMENDATIONS: Continue IV antibiotics, continue monitoring. May require a repeat MRI. Recommend access of MRI films from [facility] from last week to compare with the current images. Consider repea t MRI with contrast should symptoms fail to improve tomorrow. Minimal weightbearing in the right tasneem t to avoid exacerbation of symptoms. Bed rest, elevation, ice p.r.n. Thank you for the opportunity to consult in the care of this patient. Job ID: [id number]
[2021-06-10] MEDS: traMADol HCL 50 MG TABLET PO PRN (20:48)
[2021-06-11] MEDS: traMADol HCL 50 MG TABLET PO PRN ×2 (01:59→19:53)
[2021-06-11] MEDS: PROMETHAZINE HCL 12.5 MG in SODIUM CHLORIDE 0.9% 50 ML IV PRN (02:16)
[2021-06-11 07:07] LABS: Basophils # (auto) 0.02 K/uL (0-0.2); Basophils % (auto) 0.1 %; Eosinophils # (auto) 0.23 K/uL (0-0.5); Eosinophils % (auto) 1.7 %; Hematocrit (blood only) 36.2 % (37-47); Hemoglobin 11.3 g/dL (12.0-16.0); Immature Granulocytes # (auto) 0.08 K/uL (0.00-0.02); Immature Granulocytes % (auto) 0.6 %; Lymphocytes # (auto) 1.72 K/uL (1.2-3.4); Lymphocytes % (auto) 12.9 %; Mean Corpuscular Hemoglobin 28.3 pg (25-34); Mean Corpuscular Hgb Conc 31.2 g/dL (32-36); Mean Corpuscular Volume 90.5 fL (80-100); Mean Platelet Volume 11.1 fL (7.4-10.4); Monocytes # (auto) 0.74 K/uL (0.11-0.59); Monocytes % (auto) 5.5 %; Neutrophils # (auto) 10.58 K/uL (1.4-6.5); Neutrophils % (auto) 79.2 %; Platelet Count 266 K/uL (130-400); RDW Coefficient of Variation 14.7 % (11.5-14.5); White Blood Count 13.37 K/uL (4.8-10.8)
[2021-06-11 07:43] LABS: BUN Creatinine Ratio 18.7 (10-20); Calcium 8.5 mg/dl (8.5-10.1); Creatinine Clr Calc Pharmacy 184.5 ml/min; Est GFR (African American) 139.2 ml/min; Est GFR (Non-African American) 120.1 ml/min; Potassium 3.7 mmol/L (3.5-5.1)
--- NOTE | 2021-06-11 07:50 | Orthopedic Progress Note ---
Date of Service June 11, 2021 Assessment & Plan (1) Cellulitis of right foot: Plan: patient states no improvement in her foot pain/swelling. dicussed with dr guzman, will order MRI with contrast of her foot to further evaluate her cellulitis as well as r/o abscess dorsum foot. cont to RICE, limit WB. recheck after her MRI Admission and Anticipated Discharge Date Admission Date: June 10, 2021 Supervising Physician Co-Signing Physician Notes Care plan reviewed and agree with HANNAH note here in. Will assess MRI with contrast when available. Subjective states no changes since yesterday with continued pain, redness and swelling of the right foot. Review of Systems Constitutional: no fever and no chills Cardiovascular: no chest pain, no dyspnea and no orthopnea Physical Exam Physical Exam: Vital Signs Temp Pulse Pulse Resp BP BP Pulse Ox 06/10/21 23:00 36.8 C 72 17 124/77 97 06/10/21 15:47 36.6 C 82 16 119/80 97 06/10/21 08:40 36.4 C L 57 L 16 127/89 92 06/10/21 08:39 36.4 C L 57 L 16 127/89 92 06/10/21 07:56 71 18 131/74 96 Intake and Output 06/10/21 06/11/21 06/11/21 22:59 06:59 14:59 Intake Total 695.5 / 1326.5 50.5 / 1326.5 Output Total 50 / 100 Balance 645.5 / 1226.5 50.5 / 1226.5 Intake: IV 695.5 / 1326.5 50.5 / 1326.5 Potassium Chlo ride 40 meq In 645 / 645 Sodium Chlorid e 0.9% 1000ML 1, 000 ml @ 60 ml s/hr IV .Q17H ALFRED Rx#:[id number] Promethazine H Cl 12.5 mg In 50.5 / 151.5 50.5 / 151.5 Sodium Chlorid e 0.9% 50 ml @ 202 mls/hr IV Q6H PRN Rx#: [id number] Output: Emesis 50 / 100 Other: # Emeses 1 Musculoskeletal: right foot- positive erythema dorsum of the foot with dorsal swelling of the forefoot adjacent to the second, third, and fourth metatarsophalangeal joints with some swelling into the toes and proximal to the mid foot. Erythema over the dorsum of the distal forefoot and also over the lateral hindfoot and ankle. she is tender over the dorsum of the mid foot and also over the posterolateral region.DP +2. Cap refill is brisk at 2 seconds. Foot is warm. There is no tenderness in the calf or posterior knee at the lymph nodes. Results & Data ([facility]) Vital Signs (Past 12 Hours) Vital Signs Temp Pulse Resp BP Pulse Ox 06/10/21 23:00 36.8 C 72 17 124/77 97 Laboratory Results Laboratory Results WBC 13.37 K/uL (4.8-10.8) H 06/11/21 06:38 RBC 4.00 M/uL (4.2-5.4) L 06/11/21 06:38 Hgb 11.3 g/dL (12.0-16.0) L 06/11/21 06:38 Hct 36.2 % (37-47) L 06/11/21 06:38 MCV 90.5 fL (80-100) 06/11/21 06:38 MCH 28.3 pg (25-34) 06/11/21 06:38 MCHC 31.2 g/dL (32-36) L 06/11/21 06:38 RDW Std Deviation 49.0 fL (36.4-46.3) H 06/11/21 06:38 RDW Coeff of Nathalia 14.7 % (11.5-14.5) H 06/11/21 06:38 Plt Count 266 K/uL (130-400) 06/11/21 06:38 MPV 11.1 fL (7.4-10.4) H 06/11/21 06:38 Immature Gran % (Auto) 0.6 % 06/11/21 06:38 Neut % (Auto) 79.2 % 06/11/21 06:38 Lymph % (Auto) 12.9 % 06/11/21 06:38 [place] % (Auto) 5.5 % 06/11/21 06:38 Eos % (Auto) 1.7 % 06/11/21 06:38 Baso % (Auto) 0.1 % 06/11/21 06:38 Neut # (Auto) 10.58 K/uL (1.4-6.5) H 06/11/21 06:38 Lymph # (Auto) 1.72 K/uL (1.2-3.4) 06/11/21 06:38 [place] # (Auto) 0.74 K/uL (0.11-0.59) H 06/11/21 06:38 Eos # (Auto) 0.23 K/uL (0-0.5) 06/11/21 06:38 Baso # (Auto) 0.02 K/uL (0-0.2) 06/11/21 06:38 Immature Gran # (Auto) 0.08 K/uL (0.00-0.02) H 06/11/21 06:38 ESR 46 mm/hr (0-20) H 06/10/21 01:05 Sodium 137 mmol/L (136-145) 06/11/21 06:38 Potassium 3.7 mmol/L (3.5-5.1) 06/11/21 06:38 Chloride 108 mmol/L (98-107) H 06/11/21 06:38 Carbon Dioxide 27 mmol/L (21-32) 06/11/21 06:38 Anion Gap 2.0 (3-11) L 06/11/21 06:38 BUN 9 mg/dl (7-18) D 06/11/21 06:38 Creatinine 0.46 mg/dl (0.6-1.2) L 06/11/21 06:38 Est Cr Clr Drug Dosing 184.5 ml/min 06/11/21 06:38 Est GFR ( Amer) 139.2 ml/min 06/11/21 06:38 Est GFR (Non-Af Amer) 120.1 ml/min 06/11/21 06:38 BUN/Creatinine Ratio 18.7 (10-20) 06/11/21 06:38 Glucose 88 mg/dl (70-99) 06/11/21 06:38 Estimat Average Glucose 123 mg/dl 06/10/21 01:05 Hemoglobin A1c 5.9 % (4.5-5.6) H 06/10/21 01:05 Lactate 1.6 mmol/L (0.4-2.0) 06/10/21 01:41 Calcium 8.5 mg/dl (8.5-10.1) 06/11/21 06:38 Magnesium 1.8 mg/dl (1.8-2.4) 06/10/21 01:05 Total Creatine Kinase 21 U/L (26-192) L 06/10/21 01:05 C-Reactive Protein 5.31 mg/dl (0-0.29) H 06/10/21 01:05 Procalcitonin < 0.05 ng/ml (0-0.5) 06/10/21 01:05 COVID-19 Eval Order Covid19 at [facility] 06/10/21 05:03 SARS-CoV-2 (PCR) NEGATIVE (Negative) 06/10/21 05:03 Impressions Venous Doppler Study 06/10/21 00:59 US venous doppler LE RT HISTORY: 46 years-old Female right foot and calf pain/swelling acute pain and swelling of the right lower extremity COMPARISON: None TECHNIQUE: Multiple real-time sonographic images of the right lower extremity venous structures were obtained assessing grayscale appearance, color and spectral flow FINDINGS: Normal flow, compressibility, phasicity and augmentation. IMPRESSION: No sonographic evidence of deep venous thrombosis. ACT 112: Negative or not required by law. The above report was generated using voice recognition software. It may contain grammatical, syntax or spelling errors. Electronically signed by: Marvin Roe M.D. 06/10/2021 6:[address] 06/10/21 05:54 CT foot RT w con HISTORY: 46 years-old Female R foot swelling subacute pain with soft tissue swelling of the right foot. No reported trauma. COMPARISON: None TECHNIQUE: Multiple axial CT images of the right foot were obtained following the intravenous administration of 94 mL Optiray 320. A dose lowering technique was used consistent with the principals of ALARA. FINDINGS: Tendons and ligaments are better evaluated by MRI technique. Mild to moderate diffuse subcutaneous edema, most pronounced along the dorsal forefoot. Tiny peripherally enhancing fluid collections noted along the volar forefoot including a 1.2 cm collection volar to the cuboid on image 185. There is an 8 mm fluid collection volar to the cuboid on image 202 a 10 mm fluid collection is noted on image 199 volar to the fourth tarsal metatarsal joint. No acute fracture, dislocation or osseous erosion. Type I accessory navicular. Moderate sized plantar enthesophyte of the calcaneus. No significant osteoarthritis. IMPRESSION: 1. No acute bony abnormality. 2. Subcutaneous edema of the foot and ankle suggestive of cellulitis. There are tiny peripherally enhancing fluid collections of the volar forefoot measuring up to 1.2 cm suggestive of abscesses. ACT 112: Negative or not required by law. The above report was generated using voice recognition software. It may contain grammatical, syntax or spelling errors. Electronically signed by: Marvin Roe M.D. 06/10/2021 8:16 AM
[2021-06-11] MEDS: ENOXAPARIN INJ 40 MG/0.4 ML SYR SQ SCH (09:57)
[2021-06-11] MEDS: PREGABALIN 75 MG CAP PO SCH ×2 (09:57→21:46)
[2021-06-11] MEDS: DAPTOmycin 300 MG in SYRINGE 0 ML IV SCH (09:58)
[2021-06-11] MEDS: CEFEPIME 2,000 MG in SYRINGE 0 ML IV SCH ×2 (09:58→21:47)
[2021-06-11] MEDS ORDERED: GADOBUTROL 65ML VIAL IV ONE (14:29)
--- NOTE | 2021-06-11 15:09 | Magnetic Resonance Report ---
MR foot RT wo/w con HISTORY: right foot pain, cellulitis, r/o abscess TECHNIQUE: Multiplanar multisequence MRI of the right forefoot was performed both before and after th e intravenous administration of 11 cc of Gadavist contrast. COMPARISON STUDY: Right foot CT 06/10/2021. FINDINGS: There is subcutaneous edema and enhancement seen throughout the foot most pronounced dorsal ly. This is consistent with a cellulitis. Faint patchy marrow edema at the head of the fourth metatar thomas with a 12 x 5 x 7 mm T2 hyperintense, T1 hypointense focus of enhancement along the dorsal aspect of the fourth MTP joint. This appears to result in mild erosive change at the adjacent bony structur es of the fourth MTP joint. This is best seen on sagittal image 11 and axial image 14. This could rep resent a phlegmon or lesion. There is mild edema and enhancement surrounding the fourth MTP joint. No definite joint effusion. There is patchy areas of an enhancement and edema within the plantar fascia l/muscles. There is enhancement surrounding the distal peroneus longus tendon along the undersurface of the foot. Small peripheral enhancing fluid collection along the plantar surface of the foot measur ing 7 mm best seen on axial image 26. This is either within or adjacent to the tendon sheaths of the peroneus longus tendon. This favors a small abscess. No fracture or dislocation. IMPRESSION: 1. Subcutaneous edema and enhancement throughout the foot most pronounced dorsally. This there is con sistent with a cellulitis. 2. There is a 12 x 5 x 7 mm T2 hyperintense, T1 hypointense enhancing focus along the dorsal aspect o f the fourth MTP joint. There is soft tissue edema and enhancement surrounding the fourth MTP joint w ith faint marrow edema at the head of the fourth metatarsal. This focal area of enhancement appears t o demonstrate slight erosive change along the dorsal aspect of the fourth MTP joint. Therefore, this could represent a small mass or phlegmon. The edema within the head of the fourth metatarsal could be reactive or represent a developing osteitis/osteomyelitis. 3. There is enhancement along the distal peroneus longus tendon along the undersurface of the midfoot . This favors an infectious tenosynovitis. The small focus of fluid adjacent to the distal peroneus l ongus tendon within the plantar surface of the midfoot measures 7 mm and could represent the infected tenosynovitis or a small adjacent abscess. 4. Patchy enhancement and edema within the plantar muscles/fascia. This consistent with a nonspecific myositis/fasciitis but favors an infectious process. ACT 112: Negative or not required by law. Electronically signed by: Dillon Cohen M.D. 06/11/2021 3:08 PM
--- NOTE | 2021-06-11 22:59 | Hospitalist Progress Note ---
Date of Service June 11, 2021 Assessment & Plan (1) Infection of right foot: Plan: Right lower extremity cellulitis and possible abscess Failed outpatient therapy with PO antibiotic CT foot showed Subcutaneous edema of the foot and ankle suggestive of cellulitis. There are tiny peripherally enhancing fluid collections of the volar forefoot measuring up to 1.2 cm suggestive of abscesses. Doppler of RLE extremity showed no evidence of DVT Received Vanco and Zosyn in the ER Elevated WBC 19K on admission, trending down to 13K Currently on Dapto and Cefepime IV Case discussed with Dr. Overton Podiatry about CT finding about the abscesses Dr. Overton said that the outpatient MRI finding did not mention any evidence of abscess Ortho on board Recommend to repeat MRI with contrast to rule out any abscess or osteomyelitis Continue monitor CBC We will make n.p.o. after midnight MRI showed: 1. Subcutaneous edema and enhancement throughout the foot most pronounced dorsally. This there is consistent with a cellulitis. 2. There is a 12 x 5 x 7 mm T2 hyperintense, T1 hypointense enhancing focus along the dorsal aspect of the fourth MTP joint. There is soft tissue edema and enhancement surrounding the fourth MTP joint with faint marrow edema at the head of the fourth metatarsal. This focal area of enhancement appears to demonstrate slight erosive change along the dorsal aspect of the fourth MTP joint. Therefore, this could represent a small mass or phlegmon. The edema within the head of the fourth metatarsal could be reactive or represent a developing osteitis/osteomyelitis. 3. There is enhancement along the distal peroneus longus tendon along the under surface of the midfoot. This favors an infectious tenosynovitis. The small focus of fluid adjacent to the distal peroneus longus tendon within the plantar surface of the midfoot measures 7 mm and could represent the infected tenosynovitis or a small adjacent abscess. 4. Patchy enhancement and edema within the plantar muscles/fascia. This consistent with a nonspecific myositis/fasciitis but favors an infectious process. Hyperglycemia Mostly related to steroid Hgb A1c 5.9 on 06/10 Continue monitor BS DVT prophylaxis. Lovenox subcu Full code Admission and Anticipated Discharge Date Admission Date: June 10, 2021 Subjective Patient was seen and examined for follow-up of right foot infection Lying in bed with no acute distress Patient said that she continues to have pain in the right foot mostly in the dorsal area She said the pain is the same with no improvement Denies any chest pain, palpitation, dizziness, shortness of breath. Physical Exam Physical Exam: General- No acute distress Head- atraumatic Eyes- PERRL, EOMI, ENT- oropharynx clear Neck- supple, no JVD Lungs- clear to auscultation Heart- regular rhythm; no murmur Abdomen- normal bowel sounds, soft, nontender Extremities- no calf tenderness, right foot tenderness mostly in the dorsal area and swelling Neuro- alert, oriented x 3; PERRL, EOMI; no facial palsy; no dysarthria Skin- warm & dry Results & Data Results & Data ([facility]) Vital Signs (Past 12 Hours) Vital Signs Temp Pulse Resp BP Pulse Ox 06/11/21 22:37 36.7 C 91 H 18 114/74 97 06/11/21 17:42 36.8 C 91 H 18 111/75 99
[2021-06-11 23:23] LABS: Pregnancy Test, Urine Negative (Negative)
[2021-06-12 06:37] LABS: Hemoglobin 11.4 g/dL (12.0-16.0); Mean Corpuscular Hemoglobin 28.2 pg (25-34); Mean Corpuscular Hgb Conc 30.8 g/dL (32-36); Mean Corpuscular Volume 91.6 fL (80-100); Platelet Count 292 K/uL (130-400); RDW Coefficient of Variation 14.8 % (11.5-14.5); Red Blood Count 4.04 M/uL (4.2-5.4); White Blood Count 13.48 K/uL (4.8-10.8)
[2021-06-12] MEDS: KETOROLAC TROMETHAMINE 15 MG/ML VIAL IV PRN ×2 (08:17→19:39)
[2021-06-12] MEDS: PREGABALIN 75 MG CAP PO SCH ×2 (10:00→21:05)
--- NOTE | 2021-06-12 10:30 | Anesthesiology Consultation ---
Date of Service June 12, 2021 Assessment & Plan (1) Encounter for pre-operative examination: Chart Review Chart Review: Acceptable Risk for Surgery History Surgery Operation Date: 06/12/21 10:05 Proposed Procedures p Incision and Drainage Extremity(Right) - Wing Ni DO Height/Weight Height: 5 ft 2 in Weight: 114 kg Allergies Allergy/AdvReac Type Severity Reaction Status Date / Time No Known Allergies Allergy Unknown Verified 06/10/21 01:20 Medications Home Medications Medication Instructions Recorded Confirmed Last Taken pregabalin 75 mg capsule 75 mg PO BID 06/10/21 06/10/21 Unknown sulfamethoxazole 800 1 tab PO BID 06/10/21 06/10/21 Unknown mg-trimethoprim 160 mg tablet Active Medications Generic Name Dose Route Start Last Admin Trade Name Freq PRN Reason Stop Dose Admin Enoxaparin Sodium 40 mg 06/10/21 09:00 06/11/21 09:57 Enoxaparin Inj 40 Mg/0.4 Ml Syr SQ 07/10/21 08:59 40 mg QAM ALFRED Administration Promethazine HCl 12.5 mg/ 50.5 mls @ 202 mls/hr 06/10/21 08:32 06/11/21 03:30 Sodium Chloride IV 07/10/21 08:31 Infused Q6H PRN Infusion Nausea And Vomiting Cefepime HCl 2,000 mg/ Syringe 20 mls @ 5 mls/min 06/10/21 10:00 06/11/21 21:47 IV 06/17/21 09:59 5 mls/min Q12H ALFRED Administration Protocol Daptomycin 300 mg/ Syringe 6 mls @ 3 mls/min 06/10/21 10:00 06/11/21 09:58 IV 06/17/21 09:59 3 mls/min Q24H ALFRED Administration Protocol Ketorolac Tromethamine 15 mg 06/10/21 08:32 06/12/21 08:17 Ketorolac Tromethamine 15 Mg/Ml Vial IV 06/15/21 08:31 15 mg Q6H PRN Administration Pain Ondansetron HCl 4 mg 06/10/21 17:22 06/11/21 19:53 Ondansetron Inj 2 Mg/Ml 2 Ml Vial IV 07/10/21 17:21 4 mg Q8H PRN Administration Nausea Pregabalin 75 mg 06/10/21 09:00 06/12/21 10:00 Pregabalin 75 Mg Cap PO 07/10/21 08:59 75 mg BID ALFRED Administration Tramadol HCl 25 - 50 mg 06/10/21 08:32 06/11/21 19:53 Tramadol Hcl 50 Mg Tablet PO 07/10/21 08:31 50 mg Q4H PRN Administration Pain Past Medical History Medical History (Updated 06/12/21 @ 10:31 by Luis Enrique Ott MD) Dyslipidemia Obesity Past Surgical History Surgical History History of appendectomy History of cholecystectomy Social History Smoking Status: Never smoker Do You Dip or Chew Tobacco: No Hx Alcohol Use: Yes Alcohol type: wine alcohol intake frequency: holidays/special occasions only Hx Substance Use: No Physical Exam Vital Signs Last Vital Signs Temp 37.0 C 06/12/21 07:31 Pulse 78 06/12/21 07:31 Resp 18 06/12/21 07:31 BP 115/70 06/12/21 07:31 Pulse Ox 96 06/12/21 07:31 Testing Laboratory Results 06/12/21 06:06 06/11/21 06:38 Hemoglobin A1c 5.9 % (4.5-5.6) H 06/10/21 01:05 Urine Test Negative (Negative) 06/11/21 23:15 06/10/21 01:41 Aerobic Blood Culture - Preliminary Blood No growth in Aerobic bottle after 48 hours. Anaerobic Blood Culture - Final 06/10/21 01:05 Aerobic Blood Culture - Preliminary Blood No growth in Aerobic bottle after 48 hours. Anaerobic Blood Culture - Preliminary No growth in Anaerobic bottle after 48 hours. 06/11/21 23:15 Urine Test Negative
[2021-06-12] MEDS: CEFEPIME 2,000 MG in SYRINGE 0 ML IV SCH ×3 (10:52→21:06)
[2021-06-12] MEDS: DAPTOmycin 300 MG in SYRINGE 0 ML IV SCH ×2 (10:52→11:41)
[2021-06-12] MEDS ORDERED: ATROPINE SULFATE 0.1 MG/ML 10ML SYR IV PRN (11:18)
[2021-06-12] MEDS ORDERED: ONDANSETRON INJ 2 MG/ML 2 ML VIAL IV PRN ×2 (11:18→14:03)
[2021-06-12] MEDS ORDERED: fentaNYL citrate 100 MCG/2 ML VIAL IV PRN (11:18)
[2021-06-12] MEDS ORDERED: KETOROLAC 30 MG/ML VIAL IV PRN (11:18)
[2021-06-12] MEDS ORDERED: MIDAZOLAM HCL 1 MG/ML 2ML VIAL ONE (11:20)
[2021-06-12] MEDS ORDERED: fentaNYL citrate 100 MCG/2 ML VIAL ONE ×2 (11:20→12:26)
[2021-06-12] MEDS ORDERED: BUPIVACAINE 0.5 % 5 MG/1 ML MPF 30ML VIAL ONE (11:28)
--- NOTE | 2021-06-12 11:28 | History & Physical Bridge Note ---
Date of Service June 12, 2021 History & Physical Bridge Note I have examined the patient, reviewed the History & Physical and in the interval since the performance of the History & Physical I have noted the following changes of clinical significance: Per new MRI. Will require incision and drainage right foot/ankle abscesses today.
--- NOTE | 2021-06-12 11:39 | Orthopedic Progress Note ---
Date of Service June 12, 2021 Assessment & Plan (1) Cellulitis of right foot: Plan: patient states no improvement in her foot pain/swelling. dicussed with dr guzman and MRI reviewed, recommend I&D abscess 4th MTP joint and tenosynovectomy peroneus brevis today. keep NPO. Admission and Anticipated Discharge Date Admission Date: June 10, 2021 Subjective no changes in her symptoms. pain and swelling the same as yesterday. Physical Exam Physical Exam: Vital Signs Temp Pulse Pulse Resp BP BP Pulse Ox 06/10/21 23:00 36.8 C 72 17 124/77 97 06/10/21 15:47 36.6 C 82 16 119/80 97 06/10/21 08:40 36.4 C L 57 L 16 127/89 92 06/10/21 08:39 36.4 C L 57 L 16 127/89 92 06/10/21 07:56 71 18 131/74 96 Intake and Output 06/10/21 06/11/21 06/11/21 22:59 06:59 14:59 Intake Total 695.5 / 1326.5 50.5 / 1326.5 Output Total 50 / 100 Balance 645.5 / 1226.5 50.5 / 1226.5 Intake: IV 695.5 / 1326.5 50.5 / 1326.5 Potassium Chlo ride 40 meq In 645 / 645 Sodium Chlorid e 0.9% 1000ML 1, 000 ml @ 60 ml s/hr IV .Q17H ALFRED Rx#:[id number] Promethazine H Cl 12.5 mg In 50.5 / 151.5 50.5 / 151.5 Sodium Chlorid e 0.9% 50 ml @ 202 mls/hr IV Q6H PRN Rx#: [id number] Output: Emesis 50 / 100 Other: # Emeses 1 Musculoskeletal: right foot- positive erythema dorsum of the foot with dorsal swelling of the forefoot adjacent to the second, third, and fourth metatarsophalangeal joints with some swelling into the toes and proximal to the mid foot. Erythema over the dorsum of the distal forefoot and also over the lateral hindfoot and ankle. she is tender over the dorsum of the mid foot and also over the posterolateral region.DP +2. Cap refill is brisk at 2 seconds. Results & Data ([facility]) Vital Signs (Past 12 Hours) Vital Signs Temp Pulse Resp BP Pulse Ox 06/12/21 07:31 37.0 C 78 18 115/70 96
[2021-06-12] MEDS ORDERED: LIDOCAINE 2% 2 ML VIAL/AMP(20MG/ML) INFIL ONE (12:10)
[2021-06-12] MEDS ORDERED: ONDANSETRON INJ 2 MG/ML 2 ML VIAL ONE (12:10)
[2021-06-12] MEDS ORDERED: ceFAZolin 1000MG 1,000 MG/7.5 ML SYR IV ONE (12:10)
[2021-06-12] MEDS ORDERED: PROPOFOL IV EMULSION 10 MG/ML 20 ML VIAL IV ONE (12:10)
[2021-06-12] MEDS ORDERED: KETOROLAC 30 MG/ML VIAL ONE (12:38)
--- NOTE | 2021-06-12 13:04 | Post Operative Brief Note ---
Immediate Post Op Note v1 Date of Surgery June 12, 2021 Pre & Post Diagnosis Operation Date: 06/12/21 10:05 Pre-Op Diagnosis: Right foot forefoot abscess, septic arthritis fourth metatarsal phalangeal joint, synovitis fourth metatarsal phalangeal joint, synovitis third metatarsal phalangeal joint, abscess peroneal tendon sheath, septic tenosynovitis peroneus longus and peroneus brevis tendons, right foot cellulitis Post-Op Diagnosis: Right foot cellulitis I identified the patient and participated in the time-out.: Yes Procedure Operation Date: 06/12/21 10:05 Actual Procedures p Incision and drainage abscess right forefoot, incision and drainage fourth metatarsophalangeal joint septic arthritis, synovectomy fourth metatarsal phalangeal joint, capsulotomy third metatarsal phalangeal joint with synovectomy, evacuation abscess peroneal tendon sheath, tenosynovectomy peroneus longus and peroneus brevis tendons (Right) - Wing Ni DO Surgeon Wing Ni DO Container Packer Operator Juan Poon PA-C Estimated Blood Loss 1 Findings Consistent with Post-Op Diagnosis Specimens Aerobic anaerobic Gram stain fourth metatarsal phalangeal joint fluid Aerobic anaerobic Gram stain peroneal tendon sheath fluid Phlegmon right forefoot Septic tenosynovitis peroneus longus and peroneus brevis tendons Drains Other (1/2 inch iodoform gauze drains x2 sites) Anesthesia Type General Regional Complications none Disposition Accompanied Patient To Recovery: No
[2021-06-12] MEDS ORDERED: HYDROmorphone INJ 0.5 MG/0.5 ML SYR IV PRN (14:03)
[2021-06-12] MEDS ORDERED: HYDROCODONE/ACETAMOPHEN 5/325MG TAB PO PRN (14:03)
[2021-06-12] MEDS ORDERED: bisacodyL 10 MG SUPP PR PRN (14:03)
[2021-06-12] MEDS ORDERED: MAGNESIUM HYDROXIDE SUSP 30 ML UDC PO PRN (14:03)
[2021-06-12] MEDS ORDERED: METOCLOPRAMIDE HCL INJ 5 MG/ML 2 ML VIAL IV PRN (14:03)
[2021-06-12] MEDS ORDERED: NALOXONE HCL 0.4 MG/1 ML VIAL/CARP IV PRN (14:03)
--- NOTE | 2021-06-12 14:04 | Anesthesiology Progress Note ---
Date of Service June 12, 2021 Anesthesia Post Procedure Vital Signs Vital Signs: Temp Pulse Pulse Resp BP BP Pulse Ox 06/12/21 13:45 60 17 130/76 96 06/12/21 13:35 36.4 C L 66 14 137/77 95 06/12/21 13:25 65 15 128/91 97 06/12/21 13:15 67 14 137/89 97 06/12/21 13:05 36.7 C 69 12 143/99 H 100 06/12/21 07:31 37.0 C 78 18 115/70 96 06/11/21 22:37 36.7 C 91 H 18 114/74 97 06/11/21 17:42 36.8 C 91 H 18 111/75 99 Pain Intensity Foot: Pain Intensity: 8 Transfer of Care Handoff Completed per policy Notes Mental Status: alert / awake / arousable Patient Amnestic to Procedure: Yes Nausea / Vomiting: adequately controlled Pain: adequately controlled Airway Patency, RR, SpO2: stable & adequate BP & HR: stable & adequate Hydration State: stable & adequate Anesthetic Complications: no major complications apparent
[2021-06-12] MEDS: SODIUM CHLORIDE 0.9% 1000ML 1,000 ML IV SCH ×2 (14:25→23:30)
--- NOTE | 2021-06-12 15:11 | Operative Report (OR) ---
DATE OF PROCEDURE: 06/12/2021 PREOPERATIVE DIAGNOSES: 1. Right forefoot abscess. 2. Septic arthritis, fourth metatarsophalangeal joint. 3. Abscess, peroneal tendon sheath. 4. Septic tenosynovitis, peroneal tendons. 5. Cellulitis of the foot and ankle. POSTOPERATIVE DIAGNOSES: 1. Right forefoot abscess. 2. Septic arthritis of the fourth metatarsophalangeal joint. 3. Synovitis of the third metatarsophalangeal joint. 4. Abscess, peroneal tendon sheath. 5. Septic tenosynovitis of the peroneal tendons, both peroneus longus and peroneus brevis. 6. Cellulitis of the foot and ankle. PROCEDURE PERFORMED: 1. Right foot incision and drainage of abscess, right forefoot. 2. Incision and drainage of fourth metatarsophalangeal joint septic arthritis. 3. Synovectomy of the fourth metatarsophalangeal joint. 4. Capsulotomy of the third metatarsophalangeal joint with synovectomy. 5. Evacuation of abscess, peroneal tendon sheath. 6. Tenosynovectomy of the peroneus longus and peroneus brevis tendons. SURGEON: Wing Ni DO. GAS CHARGER: ZENA Cohen who was present for patient positioning, sterile prep and drape, manage ment of retractors and instruments. He was present through the critical portions of the case includi ng wound closure, application of sterile dressing and transport of the patient to recovery. ANESTHESIA: General, regional. SPECIMENS: 1. Aerobic, anaerobic, Gram stain -- fourth metatarsophalangeal joint fluid. 2. Anaerobic, aerobic, Gram stain -- peroneal tendon sheath fluid. 3. Phlegmon, right forefoot. 4. Septic tenosynovitis of the peroneus longus and peroneus brevis tendons. DRAINS: 1/2 inch iodoform gauze drains x2 separate sites. COMPLICATIONS: None. BLOOD LOSS: 1 mL. PERTINENT HISTORY: This is a 46-year-old female who had a somewhat complicated history of one month or greater timeframe where she may have been exposed to a trauma to her toenails after a nail salon a ppointment. She developed forefoot cellulitis, swelling. It became increasingly painful. She was s een by her primary doctor who gave her a Medrol Dosepak. She failed to respond, had worsening sympto ms, which then expanded from the foot into the lateral ankle. She was seen by a local barge loader at [facility] who treated her with oral antibiotics. The patient had an MRI at some point, which was inc onclusive. Continued to have pain and swelling. Modified the antibiotics and patient was then manjula akhtar seen at [facility] where she was evaluated with worsening symptoms. Admitted to the hospitalist service, placed on IV antibiotics. Orthopedics was then consulted. She was eval uated. CT scan, x-rays and a second MRI with contrast demonstrated findings suspicious for phlegmon in the dorsum of the forefoot, possible septic arthritis of the fourth metatarsophalangeal joint, con cerning fluid within the peroneal tendon sheath. The patient was then scheduled for surgery as indic ated. All potential risks, benefits, complications, alternatives, rehab potential for incomplete relief of symptoms, need for further surgery, DVT, PE, , persistent pain, swelling, scarring, weakness, ne urovascular injury, wound complications, need for further surgery, loss of function, and possible nee d for further irrigation and debridement were discussed with the patient. The patient decided to pro ceed with the procedure as indicated. DESCRIPTION OF PROCEDURE: The patient was taken to the operative suite and placed on the operating r oom table. After evaluation of the consent and confirmation of the site specific km on the patient , the patient was anesthetized, LMA was placed. Tourniquet was placed high on the right thigh over c ast padding. Right lower extremity was then sterilely prepped and draped in the usual sterile fashio n, elevated and there is no exsanguination performed due to the nature of the infection. Tourniquet was then inflated to 350 mmHg and then after surgical timeout was performed, a 15 blade scalpel was u sed to make an incision on the dorsum of the foot between the third and fourth metatarsophalangeal spencer ints. The skin incision was then deepened through skin and subcutaneous tissue. Meticulous hemostas is was achieved with electrocautery. Careful dissection was performed with tenotomy scissors down to the level of the extensor tendon. The fourth extensor tendon was then carefully freed with a tenoto my scissor and retracted with the Ragnell and the region of the forefoot was visualized at the site w here the phlegmon was noted on MRI, and indeed, there was a phlegmon present. The phlegmon was then harvested and passed off as specimen. Next, a 15 blade scalpel was used to make a capsulotomy incision in the fourth metatarsophalangeal spencer int, noting significant septic arthritis and synovitis. Fluid was then cultured within the fourth me tatarsophalangeal joint, it has had a murky yellowish thick in consistency consistent with abscess fl uid and this was cultured as specimen for aerobic, anaerobic, Gram stain. Next, synovectomy was then performed of the joint with a small pituitary rongeur and a rongeur. Cure tted with a small curette and then attention was directed toward the third metatarsophalangeal joint. Careful dissection was performed on the dorsum of the foot through the same incision, preserving th e neurovascular bundle. Next, the third extensor tendon was then identified. This was then freed wi th a 15 blade scalpel protected with a Ragnell rake. A capsulotomy incision was made with a 15 blade scalpel in the third metatarsophalangeal joint, noting synovitis throughout; however, the character of the fluid appeared more normal. Synovectomy was then performed with a pituitary rongeur. Next, t he site was then irrigated until clear with pulse lavage with Ancef additive. Next, a 15 blade scalpel was then used to make an incision over the lateral ankle over the peroneal t endon sheath extending from just proximal to the lateral malleolus to the base of the fifth metatarsa l. The incision was then made with a 15 blade scalpel and deepened through skin and subcutaneous tis henrry. Meticulous hemostasis was achieved with electrocautery. Jerrod rakes were applied for retraction . Sural nerve was then identified visually and then freed with tenotomy scissors and then retracted a nd protected with a Jerrod rake. Next, the peroneal tendon sheath was noted to have a significant amount of fluid distending the sheat h. This tendon sheath was then incised with a 15 blade scalpel, noting a significant amount of fluid with a murky consistency and thick in consistency, like into an abscess with hypertrophic tenosynovi tis of the peroneus longus and peroneus brevis. Fluid was then sent for specimen for aerobic, anaero bic, Gram stain and a tenosynovectomy was performed of the peroneus longus and peroneus brevis. A Ke lly clamp was then passed along the peroneus longus tendon sheath to the mid foot region to spread th e tendon sheath and allow the fluid collected to be evacuated, which indeed was the case. Excess flu id was then extruded from the plantar aspect of the foot through the peroneus longus tendon sheath. After tenosynovectomy was then completed, then pulsatile lavage with Ancef 3 liters in total was then used to lavage the lateral incision as well as the dorsal foot incision until clear. Next, the top gloves were changed and the dorsal foot incision was then packed with 1/2 inch iodoform gauze packing and closed with 4-0 nylon sutures. Next, the peroneal tendon sheath was then loosely closed using a 3-0 PDS suture as this is a monofilament and less likely to harbor infection. Next, the skin was th en closed with interrupted 4-0 nylon horizontal mattress sutures over a 1/2 inch iodoform gauze drain exiting through a small stab incision in the posterolateral aspect of the ankle. Next, a regional a nesthetic was then administered with 0.5% Marcaine at the ankle. Once this was completed, a sterile compressive dressing was applied consisting of Xeroform gauze, sterile 4 x 4s, ABD pads, cast roll an d Pancho wrap. The tourniquet was released. The patient was awakened. Normal hyperemic response retur linda to the toes. The patient was then taken to recovery in stable condition. Job ID: [id number]
--- NOTE | 2021-06-12 19:50 | Hospitalist Progress Note ---
Date of Service June 12, 2021 Assessment & Plan (1) Infection of right foot: Plan: Right lower extremity cellulitis and possible abscess Failed outpatient therapy with PO antibiotic CT foot showed Subcutaneous edema of the foot and ankle suggestive of cellulitis. There are tiny peripherally enhancing fluid collections of the volar forefoot measuring up to 1.2 cm suggestive of abscesses. Doppler of RLE extremity showed no evidence of DVT Received Vanco and Zosyn in the ER Elevated WBC 19K on admission, trending down to 13K Currently on Dapto and Cefepime IV Case discussed with Dr. Overton Podiatry about CT finding about the abscesses Dr. Overton said that the outpatient MRI finding did not mention any evidence of abscess Ortho on board Recommend to repeat MRI with contrast to rule out any abscess or osteomyelitis Continue monitor CBC We will make n.p.o. after midnight MRI showed: 1. Subcutaneous edema and enhancement throughout the foot most pronounced dorsally. This there is consistent with a cellulitis. 2. There is a 12 x 5 x 7 mm T2 hyperintense, T1 hypointense enhancing focus along the dorsal aspect of the fourth MTP joint. There is soft tissue edema and enhancement surrounding the fourth MTP joint with faint marrow edema at the head of the fourth metatarsal. This focal area of enhancement appears to demonstrate slight erosive change along the dorsal aspect of the fourth MTP joint. Therefore, this could represent a small mass or phlegmon. The edema within the head of the fourth metatarsal could be reactive or represent a developing osteitis/osteomyelitis. 3. There is enhancement along the distal peroneus longus tendon along the under surface of the midfoot. This favors an infectious tenosynovitis. The small focus of fluid adjacent to the distal peroneus longus tendon within the plantar surface of the midfoot measures 7 mm and could represent the infected tenosynovitis or a small adjacent abscess. 4. Patchy enhancement and edema within the plantar muscles/fascia. This consistent with a nonspecific myositis/fasciitis but favors an infectious process. 06/12/21 S/P Incision and drainage abscess right forefoot, incision and drainage fourth metatarsophalangeal joint septic arthritis, synovectomy fourth metatarsal phalangeal joint, capsulotomy third metatarsal phalangeal joint with synovectomy, evacuation abscess peroneal tendon sheath, tenosynovectomy peroneus longus and peroneus brevis tendons performed by Dr. Ni Culture from I&D wound collected and sent. Continue IV antibiotic with cefepime and daptomycin Continue pain control We will monitor WBC Hyperglycemia Mostly related to steroid Hgb A1c 5.9 on 06/10 Continue monitor BS DVT prophylaxis. Briana subcu Full code Admission and Anticipated Discharge Date Admission Date: June 10, 2021 Subjective Patient was seen and examined for follow-up of right foot infection Lying in bed with no acute distress with sitting at bedside Patient just came from the OR for right foot I&D She said she is having a lot of pain in the right foot Denies any chest pain, palpitation, dizziness, shortness of breath. Physical Exam Physical Exam: General- No acute distress Head- atraumatic Eyes- PERRL, EOMI, ENT- oropharynx clear Neck- supple, no JVD Lungs- clear to auscultation Heart- regular rhythm; no murmur Abdomen- normal bowel sounds, soft, nontender Extremities- no calf tenderness, status post incision and drainage in the right foot with dressing Neuro- alert, oriented x 3; PERRL, EOMI; no facial palsy; no dysarthria Skin- warm & dry Results & Data Results & Data ([facility]) Vital Signs (Past 12 Hours) Vital Signs Temp Pulse Pulse Resp BP Pulse Ox 06/12/21 19:17 37.0 C 81 16 102/65 96 06/12/21 17:46 37.0 C 78 18 104/54 L 97 06/12/21 16:00 36.8 C 78 16 101/64 96 06/12/21 15:06 64 18 128/80 99 06/12/21 14:28 36.6 C 61 16 117/78 99 06/12/21 14:00 36.6 C 61 16 123/83 97 06/12/21 13:45 60 17 130/76 96 06/12/21 13:35 36.4 C L 66 14 137/77 95 06/12/21 13:25 65 15 128/91 97 06/12/21 13:15 67 14 137/89 97 06/12/21 13:05 36.7 C 69 12 143/99 H 100
[2021-06-12] MEDS: SENNA 8.6 MG TAB PO SCH (21:05)
[2021-06-12] MEDS: DOCUSATE SODIUM 100 MG CAP PO SCH (21:05)
[2021-06-13] MEDS: KETOROLAC TROMETHAMINE 15 MG/ML VIAL IV PRN ×3 (03:43→22:00)
[2021-06-13] MEDS: traMADol HCL 50 MG TABLET PO PRN ×2 (07:45→19:40)
[2021-06-13 08:15] LABS: Creatinine Clr Calc Pharmacy 160.1 ml/min; Est GFR (African American) 132.9 ml/min; Est GFR (Non-African American) 114.7 ml/min
[2021-06-13] MEDS: ENOXAPARIN INJ 40 MG/0.4 ML SYR SQ SCH (08:55)
[2021-06-13] MEDS: DOCUSATE SODIUM 100 MG CAP PO SCH ×2 (08:55→19:41)
[2021-06-13] MEDS: PREGABALIN 75 MG CAP PO SCH ×2 (08:55→19:40)
[2021-06-13] MEDS: MULTIVITAMIN TAB PO SCH (08:55)
[2021-06-13] MEDS: DAPTOmycin 300 MG in SYRINGE 0 ML IV SCH (10:25)
[2021-06-13] MEDS: CEFEPIME 2,000 MG in SYRINGE 0 ML IV SCH ×2 (11:34→21:58)
[2021-06-13] MEDS: DAPTOmycin 450 MG in SYRINGE 0 ML IV SCH (13:04)
--- NOTE | 2021-06-13 17:50 | Orthopedic Progress Note ---
Date of Service June 13, 2021 Assessment & Plan (1) Infection of right foot: Plan: Status post surgery right foot postop day #1. Dressing change with removal of packing dorsal foot and lateral ankle performed today. Continue IV antibiotics. Recommend oral antibiotics for period of 2 to 4 weeks postoperatively. Minimal weightbearing right lower extremity for period of approximately 2 weeks. Continue ice and elevation. (2) Cellulitis of right foot: Plan: See above. (3) Abscess of right foot: Plan: See above. (4) Tenosynovitis of foot and ankle: Plan: See above. Admission and Anticipated Discharge Date Admission Date: June 10, 2021 Subjective Patient was seen and examined for follow-up of right foot infection Lying in bed with and daughter present at bedside and no acute distress Patient comfortable with marked improvement in pain control compared to last 24 to 48 hours. Denies any chest pain, palpitation, dizziness, shortness of breath. Review of Systems Constitutional: no fever and no chills Cardiovascular: no chest pain, no dyspnea and no orthopnea Physical Exam Musculoskeletal: Right foot dressing clean/dry/intact without noticeable strikethrough. Diminished edema right foot. Toes pink and warm with cap refill less than 2 seconds. Sensation intact. No streaking right lower extremity. Results & Data ([facility]) Vital Signs (Past 12 Hours) Vital Signs Temp Pulse Resp BP Pulse Ox 06/13/21 15:16 37.1 C 75 18 116/80 96 06/13/21 12:22 37.2 C 71 18 135/76 98
--- NOTE | 2021-06-13 18:43 | Hospitalist Progress Note ---
Date of Service June 13, 2021 Assessment & Plan (1) Infection of right foot: Plan: Right lower extremity cellulitis and possible abscess Failed outpatient therapy with PO antibiotic CT foot showed Subcutaneous edema of the foot and ankle suggestive of cellulitis. There are tiny peripherally enhancing fluid collections of the volar forefoot measuring up to 1.2 cm suggestive of abscesses. Doppler of RLE extremity showed no evidence of DVT Received Vanco and Zosyn in the ER Elevated WBC 19K on admission, trending down to 13K Currently on Dapto and Cefepime IV Case discussed with Dr. Overton Podiatry about CT finding about the abscesses Dr. Overton said that the outpatient MRI finding did not mention any evidence of abscess Ortho on board Recommend to repeat MRI with contrast to rule out any abscess or osteomyelitis Continue monitor CBC We will make n.p.o. after midnight MRI showed: 1. Subcutaneous edema and enhancement throughout the foot most pronounced dorsally. This there is consistent with a cellulitis. 2. There is a 12 x 5 x 7 mm T2 hyperintense, T1 hypointense enhancing focus along the dorsal aspect of the fourth MTP joint. There is soft tissue edema and enhancement surrounding the fourth MTP joint with faint marrow edema at the head of the fourth metatarsal. This focal area of enhancement appears to demonstrate slight erosive change along the dorsal aspect of the fourth MTP joint. Therefore, this could represent a small mass or phlegmon. The edema within the head of the fourth metatarsal could be reactive or represent a developing osteitis/osteomyelitis. 3. There is enhancement along the distal peroneus longus tendon along the under surface of the midfoot. This favors an infectious tenosynovitis. The small focus of fluid adjacent to the distal peroneus longus tendon within the plantar surface of the midfoot measures 7 mm and could represent the infected tenosynovitis or a small adjacent abscess. 4. Patchy enhancement and edema within the plantar muscles/fascia. This consistent with a nonspecific myositis/fasciitis but favors an infectious process. 06/13/21 S/P day #1 Incision and drainage abscess right forefoot, incision and drainage fourth metatarsophalangeal joint septic arthritis, synovectomy fourth metatarsal phalangeal joint, capsulotomy third metatarsal phalangeal joint with synovectomy, evacuation abscess peroneal tendon sheath, tenosynovectomy peroneus longus and peroneus brevis tendons performed by Dr. Ni Culture from I&D wound no growth so far Continue IV antibiotic with cefepime and daptomycin Ortho Recommended oral antibiotics for period of 2 to 4 weeks postoperatively. Minimal weightbearing right lower extremity for period of approximately 2 weeks. Continue pain control We will monitor WBC PT/OT eval Hyperglycemia Mostly related to steroid Hgb A1c 5.9 on 06/10 Continue monitor BS DVT prophylaxis. Lovenox subcu Full code Admission and Anticipated Discharge Date Admission Date: June 10, 2021 Subjective Patient was seen and examined for follow-up of right foot infection Lying in bed no acute distress Pt said that she continue to have pain Denies any chest pain, palpitation, dizziness, shortness of breath. Physical Exam Physical Exam: General- No acute distress Head- atraumatic Eyes- PERRL, EOMI, ENT- oropharynx clear Neck- supple, no JVD Lungs- clear to auscultation Heart- regular rhythm; no murmur Abdomen- normal bowel sounds, soft, nontender Extremities- no calf tenderness, status post incision and drainage in the right foot with dressing Neuro- alert, oriented x 3; PERRL, EOMI; no facial palsy; no dysarthria Skin- warm & dry Results & Data Results & Data ([facility]) Vital Signs (Past 12 Hours) Vital Signs Temp Pulse Resp BP Pulse Ox 06/13/21 15:16 37.1 C 75 18 116/80 96 06/13/21 12:22 37.2 C 71 18 135/76 98
[2021-06-13] MEDS: ACETAMINOPHEN 325 MG TAB PO PRN (19:40)
[2021-06-13] MEDS: SENNA 8.6 MG TAB PO SCH (19:41)
[2021-06-14] MEDS: traMADol HCL 50 MG TABLET PO PRN ×2 (05:51→18:11)
[2021-06-14] MEDS: ACETAMINOPHEN 325 MG TAB PO PRN (05:51)
[2021-06-14 07:25] LABS: Hematocrit (blood only) 35.3 % (37-47); Mean Corpuscular Hemoglobin 28.3 pg (25-34); Mean Corpuscular Hgb Conc 31.2 g/dL (32-36); Mean Corpuscular Volume 90.7 fL (80-100); Mean Platelet Volume 10.6 fL (7.4-10.4); Platelet Count 268 K/uL (130-400); RDW Coefficient of Variation 14.5 % (11.5-14.5); RDW Standard Deviation 48.3 fL (36.4-46.3); Red Blood Count 3.89 M/uL (4.2-5.4); White Blood Count 10.23 K/uL (4.8-10.8)
--- NOTE | 2021-06-14 08:30 | Hospitalist Progress Note ---
Date of Service June 14, 2021 Assessment & Plan (1) Infection of right foot: Plan: Right lower extremity cellulitis and possible abscess Failed outpatient therapy with PO antibiotic CT foot showed Subcutaneous edema of the foot and ankle suggestive of cellulitis. There are tiny peripherally enhancing fluid collections of the volar forefoot measuring up to 1.2 cm suggestive of abscesses. Doppler of RLE extremity showed no evidence of DVT Received Vanco and Zosyn in the ER Elevated WBC 19K on admission, trending down to 13K Currently on Dapto and Cefepime IV Case discussed with Dr. Overton Podiatry about CT finding about the abscesses Dr. Overton said that the outpatient MRI finding did not mention any evidence of abscess Ortho on board Recommend to repeat MRI with contrast to rule out any abscess or osteomyelitis Continue monitor CBC We will make n.p.o. after midnight MRI showed: 1. Subcutaneous edema and enhancement throughout the foot most pronounced dorsally. This there is consistent with a cellulitis. 2. There is a 12 x 5 x 7 mm T2 hyperintense, T1 hypointense enhancing focus along the dorsal aspect of the fourth MTP joint. There is soft tissue edema and enhancement surrounding the fourth MTP joint with faint marrow edema at the head of the fourth metatarsal. This focal area of enhancement appears to demonstrate slight erosive change along the dorsal aspect of the fourth MTP joint. Therefore, this could represent a small mass or phlegmon. The edema within the head of the fourth metatarsal could be reactive or represent a developing osteitis/osteomyelitis. 3. There is enhancement along the distal peroneus longus tendon along the under surface of the midfoot. This favors an infectious tenosynovitis. The small focus of fluid adjacent to the distal peroneus longus tendon within the plantar surface of the midfoot measures 7 mm and could represent the infected tenosynovitis or a small adjacent abscess. 4. Patchy enhancement and edema within the plantar muscles/fascia. This consistent with a nonspecific myositis/fasciitis but favors an infectious process. 06/14/21 S/P day #2 Incision and drainage abscess right forefoot, incision and drainage fourth metatarsophalangeal joint septic arthritis, synovectomy fourth metatarsal phalangeal joint, capsulotomy third metatarsal phalangeal joint with synovectomy, evacuation abscess peroneal tendon sheath, tenosynovectomy peroneus longus and peroneus brevis tendons performed by Dr. Ni Culture from I&D wound no growth so far Continue IV antibiotic with cefepime and daptomycin, will transition to oral antibiotic if culture remains negative Ortho Recommended oral antibiotics for period of 2 to 4 weeks postoperatively. Minimal weightbearing right lower extremity for period of approximately 2 weeks. Continue pain control We will monitor WBC PT/OT eval Follow-up with orthopedic team in 12 to 14 days from the day of the procedure Hyperglycemia Mostly related to steroid Hgb A1c 5.9 on 06/10 Continue monitor BS Morbid Obesity BMI 46 Counseling on weight loss DVT prophylaxis. Lovenox subcu Full code Disposition Possible discharge tomorrow Admission and Anticipated Discharge Date Admission Date: June 10, 2021 Subjective Patient was seen and examined for follow-up of right foot infection Lying in bed no acute distress Patient said that pain improved She walked in the hallway with therapy today Denies any chest pain, palpitation, dizziness, shortness of breath. Physical Exam Physical Exam: General- No acute distress Head- atraumatic Eyes- PERRL, EOMI, ENT- oropharynx clear Neck- supple, no JVD Lungs- clear to auscultation Heart- regular rhythm; no murmur Abdomen- normal bowel sounds, soft, nontender Extremities- no calf tenderness, status post incision and drainage in the right foot with dressing Neuro- alert, oriented x 3; PERRL, EOMI; no facial palsy; no dysarthria Skin- warm & dry Results & Data Results & Data ([facility]) Vital Signs (Past 12 Hours) Vital Signs Temp Pulse Resp BP Pulse Ox 06/14/21 07:39 36.8 C 72 18 137/80 98 06/14/21 02:00 14 94 06/13/21 22:32 36.6 C 75 18 125/76 94
[2021-06-14] MEDS: PREGABALIN 75 MG CAP PO SCH ×2 (09:16→21:51)
[2021-06-14] MEDS: MULTIVITAMIN TAB PO SCH (09:16)
[2021-06-14] MEDS: DOCUSATE SODIUM 100 MG CAP PO SCH ×2 (09:16→21:48)
[2021-06-14] MEDS: ENOXAPARIN INJ 40 MG/0.4 ML SYR SQ SCH (09:17)
[2021-06-14] MEDS: CEFEPIME 2,000 MG in SYRINGE 0 ML IV SCH ×2 (09:19→21:48)
--- NOTE | 2021-06-14 09:50 | Orthopedic Progress Note ---
Date of Service June 14, 2021 Assessment & Plan (1) Infection of right foot: Plan: Status post I&D right foot POD #2. Dressing changed and removed remaining packing from dorsum incision. Continue IV antibiotics as per medicine. Recommend oral antibiotics for period of 2 to 4 weeks postoperatively. Minimal weightbearing right lower extremity for period of approximately 2 weeks. Continue ice and elevation. she should f/u with Dr Last arnold in 12-14 days. Ortho to sign off at this time, please feel free to contact with any questions or concerns. (2) Cellulitis of right foot: Plan: See above. (3) Abscess of right foot: Plan: See above. (4) Tenosynovitis of foot and ankle: Plan: See above. Admission and Anticipated Discharge Date Admission Date: June 10, 2021 Subjective POD #2 s/p Right foot I&D Review of Systems Constitutional: no fever and no chills Cardiovascular: no chest pain and no dyspnea Gastrointestinal: no nausea and no vomiting Physical Exam Physical Exam: Vital Signs Temp Pulse Resp BP Pulse Ox 06/14/21 07:39 36.8 C 72 18 137/80 98 06/14/21 02:00 14 94 06/13/21 22:32 36.6 C 75 18 125/76 94 06/13/21 15:16 37.1 C 75 18 116/80 96 06/13/21 12:22 37.2 C 71 18 135/76 98 Intake and Output 06/13/21 06/14/21 06/14/21 22:59 06:59 14:59 Intake Total 240 / 240 Balance 240 / 240 Intake: Oral 240 / 240 Other: # Unmeasured Voi ds 0 1 Constitutional: WD/WN, vitals as above Musculoskeletal: Right foot: dressing clean/dry/intact. dressing removed and remaining packing has been removed from the dorsum incision. Toes pink and warm with cap refill less than 2 seconds. Sensation intact. No streaking right lower extremity. swelling present but lessened since yesterday. no erythema noted. Results & Data ([facility]) Vital Signs (Past 12 Hours) Vital Signs Temp Pulse Resp BP Pulse Ox 06/14/21 07:39 36.8 C 72 18 137/80 98 06/14/21 02:00 14 94 06/13/21 22:32 36.6 C 75 18 125/76 94 Laboratory Results Laboratory Results WBC 10.23 K/uL (4.8-10.8) 06/14/21 07:13 RBC 3.89 M/uL (4.2-5.4) L 06/14/21 07:13 Hgb 11.0 g/dL (12.0-16.0) L 06/14/21 07:13 Hct 35.3 % (37-47) L 06/14/21 07:13 MCV 90.7 fL (80-100) 06/14/21 07:13 MCH 28.3 pg (25-34) 06/14/21 07:13 MCHC 31.2 g/dL (32-36) L 06/14/21 07:13 RDW Std Deviation 48.3 fL (36.4-46.3) H 06/14/21 07:13 RDW Coeff of Nathalia 14.5 % (11.5-14.5) 06/14/21 07:13 Plt Count 268 K/uL (130-400) 06/14/21 07:13 MPV 10.6 fL (7.4-10.4) H 06/14/21 07:13 Immature Gran % (Auto) 0.6 % 06/11/21 06:38 Neut % (Auto) 79.2 % 06/11/21 06:38 Lymph % (Auto) 12.9 % 06/11/21 06:38 [place] % (Auto) 5.5 % 06/11/21 06:38 Eos % (Auto) 1.7 % 06/11/21 06:38 Baso % (Auto) 0.1 % 06/11/21 06:38 Neut # (Auto) 10.58 K/uL (1.4-6.5) H 06/11/21 06:38 Lymph # (Auto) 1.72 K/uL (1.2-3.4) 06/11/21 06:38 [place] # (Auto) 0.74 K/uL (0.11-0.59) H 06/11/21 06:38 Eos # (Auto) 0.23 K/uL (0-0.5) 06/11/21 06:38 Baso # (Auto) 0.02 K/uL (0-0.2) 06/11/21 06:38 Immature Gran # (Auto) 0.08 K/uL (0.00-0.02) H 06/11/21 06:38 ESR 46 mm/hr (0-20) H 06/10/21 01:05 Sodium 137 mmol/L (136-145) 06/11/21 06:38 Potassium 3.7 mmol/L (3.5-5.1) 06/11/21 06:38 Chloride 108 mmol/L (98-107) H 06/11/21 06:38 Carbon Dioxide 27 mmol/L (21-32) 06/11/21 06:38 Anion Gap 2.0 (3-11) L 06/11/21 06:38 BUN 9 mg/dl (7-18) D 06/11/21 06:38 Creatinine 0.53 mg/dl (0.6-1.2) L 06/13/21 07:10 Est Cr Clr Drug Dosing 160.1 ml/min 06/13/21 07:10 Est GFR ( Amer) 132.9 ml/min 06/13/21 07:10 Est GFR (Non-Af Amer) 114.7 ml/min 06/13/21 07:10 BUN/Creatinine Ratio 18.7 (10-20) 06/11/21 06:38 Glucose 88 mg/dl (70-99) 06/11/21 06:38 Estimat Average Glucose 123 mg/dl 06/10/21 01:05 Hemoglobin A1c 5.9 % (4.5-5.6) H 06/10/21 01:05 Lactate 1.6 mmol/L (0.4-2.0) 06/10/21 01:41 Calcium 8.5 mg/dl (8.5-10.1) 06/11/21 06:38 Magnesium 1.8 mg/dl (1.8-2.4) 06/10/21 01:05 Total Creatine Kinase 21 U/L (26-192) L 06/10/21 01:05 C-Reactive Protein 5.31 mg/dl (0-0.29) H 06/10/21 01:05 Procalcitonin < 0.05 ng/ml (0-0.5) 06/10/21 01:05 Urine Test Negative (Negative) 06/11/21 23:15 COVID-19 Eval Order Covid19 at [facility] 06/10/21 05:03 SARS-CoV-2 (PCR) NEGATIVE (Negative) 06/10/21 05:03 Impressions Venous Doppler Study 06/10/21 00:59 US venous doppler LE RT HISTORY: 46 years-old Female right foot and calf pain/swelling acute pain and swelling of the right lower extremity COMPARISON: None TECHNIQUE: Multiple real-time sonographic images of the right lower extremity venous structures were obtained assessing grayscale appearance, color and spectral flow FINDINGS: Normal flow, compressibility, phasicity and augmentation. IMPRESSION: No sonographic evidence of deep venous thrombosis. ACT 112: Negative or not required by law. The above report was generated using voice recognition software. It may contain grammatical, syntax or spelling errors. Electronically signed by: Marvin Roe M.D. 06/10/2021 6:[address] 06/10/21 05:54 CT foot RT w con HISTORY: 46 years-old Female R foot swelling subacute pain with soft tissue swelling of the right foot. No reported trauma. COMPARISON: None TECHNIQUE: Multiple axial CT images of the right foot were obtained following the intravenous administration of 94 mL Optiray 320. A dose lowering technique was used consistent with the principals of [facility]. FINDINGS: Tendons and ligaments are better evaluated by MRI technique. Mild to moderate diffuse subcutaneous edema, most pronounced along the dorsal forefoot. Tiny peripherally enhancing fluid collections noted along the volar forefoot including a 1.2 cm collection volar to the cuboid on image 185. There is an 8 mm fluid collection volar to the cuboid on image 202 a 10 mm fluid collection is noted on image 199 volar to the fourth tarsal metatarsal joint. No acute fracture, dislocation or osseous erosion. Type I accessory navicular. Moderate sized plantar enthesophyte of the calcaneus. No significant osteoarthritis. IMPRESSION: 1. No acute bony abnormality. 2. Subcutaneous edema of the foot and ankle suggestive of cellulitis. There are tiny peripherally enhancing fluid collections of the volar forefoot measuring up to 1.2 cm suggestive of abscesses. ACT 112: Negative or not required by law. The above report was generated using voice recognition software. It may contain grammatical, syntax or spelling errors. Electronically signed by: Marvin Roe M.D. 06/10/2021 8:16 AM Foot MRI 06/11/21 07:46 MR foot RT wo/w con HISTORY: right foot pain, cellulitis, r/o abscess TECHNIQUE: Multiplanar multisequence MRI of the right forefoot was performed both before and after the intravenous administration of 11 cc of Gadavist contrast. COMPARISON STUDY: Right foot CT 06/10/2021. FINDINGS: There is subcutaneous edema and enhancement seen throughout the foot most pronounced dorsally. This is consistent with a cellulitis. Faint patchy marrow edema at the head of the fourth metatarsal with a 12 x 5 x 7 mm T2 hyperintense, T1 hypointense focus of enhancement along the dorsal aspect of the fourth MTP joint. This appears to result in mild erosive change at the adjacent bony structures of the fourth MTP joint. This is best seen on sagittal image 11 and axial image 14. This could represent a phlegmon or lesion. There is mild edema and enhancement surrounding the fourth MTP joint. No definite joint effusion. There is patchy areas of an enhancement and edema within the plantar fascial/muscles. There is enhancement surrounding the distal peroneus longus tendon along the undersurface of the foot. Small peripheral enhancing fluid collection along the plantar surface of the foot measuring 7 mm best seen on axial image 26. This is either within or adjacent to the tendon sheaths of the peroneus longus tendon. This favors a small abscess. No fracture or dislocation. IMPRESSION: 1. Subcutaneous edema and enhancement throughout the foot most pronounced dorsally. This there is consistent with a cellulitis. 2. There is a 12 x 5 x 7 mm T2 hyperintense, T1 hypointense enhancing focus along the dorsal aspect of the fourth MTP joint. There is soft tissue edema and enhancement surrounding the fourth MTP joint with faint marrow edema at the head of the fourth metatarsal. This focal area of enhancement appears to demonstrate slight erosive change along the dorsal aspect of the fourth MTP joint. Therefore, this could represent a small mass or phlegmon. The edema within the head of the fourth metatarsal could be reactive or represent a developing osteitis/osteomyelitis. 3. There is enhancement along the distal peroneus longus tendon along the undersurface of the midfoot. This favors an infectious tenosynovitis. The small focus of fluid adjacent to the distal peroneus longus tendon within the plantar surface of the midfoot measures 7 mm and could represent the infected tenosynovitis or a small adjacent abscess. 4. Patchy enhancement and edema within the plantar muscles/fascia. This consistent with a nonspecific myositis/fasciitis but favors an infectious process. ACT 112: Negative or not required by law. Electronically signed by: Dillon Cohen M.D. 06/11/2021 3:08 PM
[2021-06-14] MEDS: DAPTOmycin 450 MG in SYRINGE 0 ML IV SCH (13:06)
[2021-06-14] MEDS: SENNA 8.6 MG TAB PO SCH (21:48)
[2021-06-14] MEDS: KETOROLAC TROMETHAMINE 15 MG/ML VIAL IV PRN (21:51)
[2021-06-15 06:30] LABS: Hemoglobin 11.8 g/dL (12.0-16.0); Mean Corpuscular Hemoglobin 28.6 pg (25-34); Mean Corpuscular Hgb Conc 31.9 g/dL (32-36); Mean Corpuscular Volume 89.6 fL (80-100); Mean Platelet Volume 11.2 fL (7.4-10.4); Platelet Count 327 K/uL (130-400); RDW Coefficient of Variation 14.3 % (11.5-14.5); Red Blood Count 4.13 M/uL (4.2-5.4); White Blood Count 11.05 K/uL (4.8-10.8)
[2021-06-15 07:00] LABS: BUN Creatinine Ratio 21.8 (10-20); Calcium 8.7 mg/dl (8.5-10.1); Creatinine Clr Calc Pharmacy 169.7 ml/min; Est GFR (African American) 135.5 ml/min; Est GFR (Non-African American) 116.9 ml/min
[2021-06-15] MEDS: DOCUSATE SODIUM 100 MG CAP PO SCH (09:57)
[2021-06-15] MEDS: MULTIVITAMIN TAB PO SCH (09:58)
[2021-06-15] MEDS: ENOXAPARIN INJ 40 MG/0.4 ML SYR SQ SCH (09:58)
[2021-06-15] MEDS: CEFEPIME 2,000 MG in SYRINGE 0 ML IV SCH (09:58)
[2021-06-15] MEDS: PREGABALIN 75 MG CAP PO SCH (09:59)
[2021-06-15] MEDS: DAPTOmycin 450 MG in SYRINGE 0 ML IV SCH (12:17)
--- NOTE | 2021-06-15 14:19 | Discharge Summary ---
Date of Service June 15, 2021 Admission HPI Per Admitting Provider History obtained from patient and records. Medical history significant for hyperlipidemia, IBS as per records. Patient noted swelling on right foot dorsum after a pedicure last month. No fever, chills, chest pain, S OB. Patient seen at [facility] ER. X-rays were negative. No response to prednisone course initiated by PCP for possible acute gout. Doxycycline prescribed by PCP 2 weeks ago for possible right foot cellulitis. Outpatient right foot MRI last week showed small for MTP joint effusion with edema in the surrounding soft tissue and adjacent bone marrow. Marrow edema is mild and likely reactive. Degeneration versus partial tearing of the medial band of the 4th plantar plate. Mild inter metatarsal bursitis in the 1st, 2nd, and 3rd interspaces. Patient evaluated by [facility] manager medicaid outpatient 2 days ago. Bactrim prescribed for worsening swelling with some extension to the right lower leg, outpatient leukocytosis in the 20s, and abnormal MRI. Patient consulted ER for worsening symptoms. Patient received IV vancomycin and Zosyn for worsening right foot infection. 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 Principal Diagnosis Infection/cellulitis/abscess of right foot status post surgery Discharge Exam Constitutional WD/WN, vitals as above Eyes PERRL, conjunctivae normal, anicteric sclerae ENMT external ear and nose normal, oropharynx normal Neck trachea midline, no thyromegaly Respiratory normal respiratory effort, lungs clear to auscultation Cardiovascular RRR, no murmur, no edema Gastrointestinal (Abdomen) normal bowel sounds, soft, nontender, no hepatosplenomegaly Musculoskeletal Extremities: + foot abnormality (Status post surgery, bandage present, no drain age or surrounding erythema) Right Skin no rashes, warm and dry Neurologic PERRL, EOMI, accommodation nl, no face palsy, no dysarthria Psychiatric A+Ox3, euthymic affect Discharge Data Allergies Allergy/AdvReac Type Severity Reaction Status Date / Time No Known Allergies Allergy Unknown Verified 06/10/21 01:20 Consultations 06/10/21 04:03 ED Decision to Admit Stat 06/10/21 13:46 Consult Orthopedic Surgery Routine Procedures Performed Operation Date: 06/12/21 10:05 Actual Procedures p Incision and drainage abscess 4th metatarsalphalangeal joint, right foot abscess incision and drainage, evacuation abscess peroneal tendon sheath, and tenosynovectomy peroneus brevis(Right) - Wing Ni DO Ordered Studies 06/10/21 00:59 US venous doppler LE RT Urgent 06/10/21 05:54 CT foot RT w con Urgent 06/11/21 07:46 MR foot RT wo/w con Urgent Hospital Course (1) Infection of right foot: Right lower extremity cellulitis and abscess Failed outpatient therapy with PO antibiotic CT foot showed Subcutaneous edema of the foot and ankle suggestive of cellulitis. There are tiny peripherally enhancing fluid collections of the volar forefoot measuring up to 1.2 cm suggestive of abscesses. Doppler of RLE extremity showed no evidence of DVT Received Vanco and Zosyn in the ER Elevated WBC 19K on admission, trending down to 13K On the floor continued on Dapto and Cefepime IV Ortho on board MRI showed: 1. Subcutaneous edema and enhancement throughout the foot most pronounced dorsally. This there is consistent with a cellulitis. 2. There is a 12 x 5 x 7 mm T2 hyperintense, T1 hypointense enhancing focus along the dorsal aspect of the fourth MTP joint. There is soft tissue edema and enhancement surrounding the fourth MTP joint with faint marrow edema at the head of the fourth metatarsal. This focal area of enhancement appears to demonstrate slight erosive change along the dorsal aspect of the fourth MTP joint. Therefore, this could represent a small mass or phlegmon. The edema within the head of the fourth metatarsal could be reactive or represent a developing osteitis/osteomyelitis. 3. There is enhancement along the distal peroneus longus tendon along the undersurface of the midfoot. This favors an infectious tenosynovitis. The small focus of fluid adjacent to the distal peroneus longus tendon within the plantar surface of the midfoot measures 7 mm and could represent the infected tenosynovitis or a small adjacent abscess. 4. Patchy enhancement and edema within the plantar muscles/fascia. This consistent with a nonspecific myositis/fasciitis but favors an infectious process. S/P Incision and drainage abscess right forefoot, incision and drainage fourth metatarsophalangeal joint septic arthritis, synovectomy fourth metatarsal phalangeal joint, capsulotomy third metatarsal phalangeal joint with synovectomy, evacuation abscess peroneal tendon sheath, tenosynovectomy peroneus longus and peroneus brevis tendons performed by Dr. Ni Culture from I&D wound no growth so far Ortho Recommended oral antibiotics for period of 2 to 4 weeks postoperatively. Patient is discharged on 2 weeks of p.o. Keflex and Cipro, advised to continue to take probiotic during the length of antibiotic treatment Minimal weightbearing right lower extremity for period of approximately 2 weeks. Follow-up with orthopedic team in 12 to 14 days from the day of the procedure Morbid Obesity BMI 46 Counseling on weight loss DVT prophylaxis. Lovenox subcu Full code Disposition Patient is discharged to home today Total Time Total Time Spent Total Time Spent (In Minutes): 35mins Discharge Plan Discharge Items Patient Disposition: Home - Self-Care Reason For Visit: R FOOT SWELLING Discharge Diagnosis: Infection/cellulitis/abscess of right foot status post surgery Activity: Per Instructions section Non-emergency contact: Primary Care Provider Call non-emergency contact if: you have any medication questions Follow-up/Referrals: Wing Ni DO [Surgeon] - 06/23/21 9:00 am (Dr Ni 12-14 days after your surgery.) Genaro Collado MD [Primary Care Provider] - 06/20/21 3:00 pm (Date & Time 06/20/2021 3:00 PM Provider Genaro Collado MD Department Family Medicine [facility] ) Diet: Regular Addtl Attending Provider Instructions: Please take all medications as instructed on discharge list below. It is recommended that you follow-up with your primary care physician within 1-2 weeks of hospital discharge to ensure you are still doing well. Please call if you have any questions or problems. You can reach a [facility] hospitalist on duty at 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 SPECIAL CARE INSTRUCTIONS: * Some drainage onto the dressing is normal and is no cause for alarm. * Some swelling is natural especially after walking. When resting, keep your foot elevated above the level of your heart. * Call the doctor's office at if you notice increased drainage, fever over 101 degrees F. or severe constant pain. BANDAGE: * You may perform daily dressing changes over the 2 incisions using adaptec, 4x4, gauze wrap and luis alberto bandage. FOLLOW UP VISIT: If appointment is not already scheduled: Please call [facility] to make a follow-up appointment after your surgery at . you should follow up with Dr Ni 12-14 days after your surgery. Pending Studies at Discharge: No Stand-Alone Forms: [facility], Work/School Release, Smoking Cessation Medications and DC Order Prescriptions: New ciprofloxacin HCl [Cipro] 500 mg tablet 500 mg PO BID 14 Days Qty: 28 RF: 0 cephalexin 500 mg capsule 500 mg PO BID 14 Days Qty: 28 RF: 0 tramadol 50 mg Tablet 25 mg PO Q8 PRN (Reason: severe pain 8-10) Qty: 10 RF: 0 ibuprofen 600 mg tablet 600 mg PO Q6H PRN (Reason: fever or pain) Qty: 30 RF: 0 Continued pregabalin 75 mg capsule 75 mg PO BID RF: 0 Discontinued sulfamethoxazole-trimethoprim 800-160 mg tablet 1 tab PO BID RF: 0 Discharge Orders: Discharge Order (Routine); Ordered 06/15/21 Ordered By: Halina Perales/Other Patient Handouts: DVT Post Op Prevention Admission Data Admit Date/Time: 06/10/21 06:14 Attending Provider: Halina Adkins Admit Provider: Ish Johnston Primary Care Provider: Genaro Collado Other Providers: Ish Johnston ; Wing Ni Other Interventions: Discharge Summary Assessment (RN) Last Done: 06/15/21 14:59
== END 2021-06-15 17:13 | disposition home or self-care (01) | DRG 501 ==
LOC: ED 00:40 → 3N 06:14 → SUATTDRO 06:14 → 3N 07:56